=== PATIENT | male | born 1955 | race Caucasian/White ===

== ENCOUNTER 2020-02-29 16:36 | Outpatient (REF) | payer MEDICAID, SELFPAY ==
[2020-02-29 20:39] LABS: HCT 45.7 % (40.0-50.0); HGB 15.2 g/dL (13.5-17.5); MCH 29.6 pg (27.0-33.0); MCHC 33.3 % (32.0-36.0); MCV 88.9 fL (80-95); MPV 10.8 fL (8.0-11.0); Platelet Count 217 10^3/uL (130-400); RBC 5.14 10^6/uL (4.36-5.78); RDW 12.6 % (11.8-14.1); RDW-SD 41.4 fL; WBC 7.29 10^3/uL (4.4-10.8)
[2020-02-29 21:06] LABS: Anion Gap 5.6 mmol/L (3-11); BUN 16 mg/dL (7-18); CO2 29.4 mmol/L (21.0-32.0); CREATININE 1.14 mg/dL (0.70-1.30); Calcium 8.9 mg/dL (8.5-10.1); Calculated LDL 109 mg/dL (<100); Chloride 106 mmol/L (98-107); Cholesterol 168 mg/dL (<200); Glucose 102 mg/dL (74-106); HDL Cholesterol 46 mg/dL (40-60); Potassium 4.6 mmol/L (3.5-5.1); Sodium 141 mmol/L (136-145); Triglyceride 67 mg/dL (<150)
== END 2020-02-29 16:56 ==
LOC: NCHCN 16:36
PROVIDERS: Visit Provider Internal Medicine
DX: R10.9 Unspecified abdominal pain (principal); K42.9 Umbilical hernia without obstruction or gangrene; E78.5 Hyperlipidemia, unspecified
CPT/HCPCS: 80048; 80061; 85027

== ENCOUNTER 2020-03-01 10:31 | Outpatient (CLI) | payer MEDICAID, SELFPAY ==
[2020-03-01] MEDS: Omnipaque 350 MG/ML 50 ML BTL IJ (12:44)
--- NOTE | 2020-03-01 12:57 | DI.CT_ITS ---
EXAM: CT ABDOMEN PELVIS W CLINICAL HISTORY: ABD PAIN, R10.9 TECHNIQUE: COMPARISON: No exams were available for comparison FINDINGS: CT examination of the abdomen and pelvis was performed with bolus infusion of 100 cc of Omnipaque 350 . Images obtained through the lung bases are unremarkable. The liver and spleen appear normal as does the pancreas. Gallbladder and bile ducts are unremarkable. Adrenals appear normal bilaterally. Kidneys appear normal with no evidence of renal mass, hydronephro sis, or nephrolithiasis There is no evidence of abdominal or pelvic adenopathy. Abdominal aorta is of normal diameter and no major vascular abnormality is seen. Appendix is normal. There is marked wall thickening of a segment of the mid sigmoid colon with associated marked pericolo beatriz fat stranding. Findings are highly suggestive of acute diverticulitis.. Some small gas collecti ons are noted which may be intra or extra luminal, possibility of contained micro perforation not exc luded. No gross abscess peritoneal cavity. No significant abdominal wall hernia seen. Impression: Findings consistent with diverticulitis of the mid sigmoid colon. Possible localized micro perforati on, no generalized free air or abscess formation. RADIATION DOSE DELIVERED: 1,509.99mGy.cm Total DLP DATA REPOSITORY: All CT scans at this facility are submitted to the National Radiology Data Registry (NRDR) Dose Index Registry (DIR) with the [employer] (ACR). RADIATION OPTIMIZATION: All CT scans at this facility use at least one of these dose optimization te chniques: automated exposure control; mA and/or kV adjustment per patient size (includes targeted exa ms where dose is matched to clinical indication); or iterative reconstruction.
== END 2020-03-01 10:51 ==
PROVIDERS: PCP Internal Medicine; Visit Provider Internal Medicine
DX: R10.9 Unspecified abdominal pain (principal); R93.5 Abnormal findings on diagnostic imaging of other abdominal regions, including retroperitoneum
CPT/HCPCS: 74177; Q9967

== ENCOUNTER 2020-03-01 17:23 | Observation (INO) | payer MEDICAID, SELFPAY ==
[2020-03-01 17:27] VITALS: BP 155/75; PULSE 77; RESP 16; TEMP 37.1; O2SAT 96
--- NOTE | 2020-03-01 17:34 | ED.GENADUL_ITS ---
Discharge Plan Disposition Patient Disposition: [facility] INPATIENT Condition: Stable Discharge Details Chief Complaint: Abd Prob Clinical Impression: Diverticulitis of colon with perforation Primary Care Provider: Faraz Frank ED Provider: Masood Yoon Home Meds and New Rx's Prescriptions: No Action aspirin 81 MG tablet,delayed release (DR/EC) 81 mg PO DAILY RF: 0 simvastatin [Zocor] 20 MG tablet 20 mg PO DAILY RF: 0 Medical Decision Making 64 yo male with hx of hld comes in after he had abodminal pain in lower and mid abdomen this weekend that has improved in intensity and had a CT done earlier as an outpatient showing the following: FINDINGS: CT examination of the abdomen and pelvis was performed with bolus infusion of 100 cc of Omnipaque 350. Images obtained through the lung bases are unremarkable. The liver and spleen appear normal as does the pancreas. Gallbladder and bile ducts are unremarkable. Adrenals appear normal bilaterally. Kidneys appear normal with no evidence of renal mass, hydronephrosis, or nephrolithiasis There is no evidence of abdominal or pelvic adenopathy. Abdominal aorta is of normal diameter and no major vascular abnormality is seen. Appendix is normal. There is marked wall thickening of a segment of the mid sigmoid colon with associated marked pericolonic fat stranding. Findings are highly suggestive of acute diverticulitis.. Some small gas collections are noted which may be intra or extra luminal, possibility of contained micro perforation not excluded. No gross abscess peritoneal cavity. No significant abdominal wall hernia seen. Impression: Findings consistent with diverticulitis of the mid sigmoid colon. Possible localized micro perforation, no generalized free air or abscess formation. HE was sent here after these results. He denies fevers, chills, chest pain, sob, no prior inrabdominal surgeries.Does have tenderness without guarding in left lower abdomen and also has small umbilical hernia on exam that I am able to reduce. Will obtain lab work and consult general surgery and order zosyn while this is pending. spoke with Dr. Babb who accepts for admission for IV abx, pt agrees with plan Differential Diagnosis Differential Diagnosis: diverticulitis , perforation, umbilical hernia Lab Data Lab results reviewed: Yes I reviewed the patient's lab results. HPI General Mode of arrival: ambulatory . Date/Time Provider Initiated Documentation: 03/01/20 17:24 . Limitations to Documentation: no limitations . Information obtained by: patient . History of Present Illness 64 year old M presents to the emergency department with the chief complaint of abdominal pain, described as moderate, and it has been other (improving). No relieving factors improve symptom(s), No exacerbating factors reported . Patient did receive the following treatments prior to arrival, none Related Data Home Medications Medication Instructions Recorded Confirmed aspirin 81 mg PO DAILY tab-cap 06/09/14 03/01/20 simvastatin [Zocor] 20 mg PO DAILY tab-cap 06/09/14 03/01/20 Allergies Allergy/AdvReac Type Severity Reaction Status Date / Time No Known Allergies Allergy Unverified 03/01/20 17:30 General Stated Complaint: Abd Prob AGAPITO: 3 Review of Systems All systems reviewed & are unremarkable except as noted in HPI and below Constitutional Constitutional: Denies chills, Denies fever(s) and Denies weakness Cardiovascular Cardiovascular: Denies chest pain and Denies dyspnea Respiratory Respiratory: Denies cough and Denies dyspnea Gastrointestinal Gastrointestinal: Denies nausea and Denies vomiting Musculoskeletal Musculoskeletal: Denies joint swelling Neurologic Neurologic: Denies weakness Psychiatric Psychiatric: Denies depression [facility] Social History Smoking/Tobacco Use Status: Never Alcohol Intake: never Drug use: Never Substance use type: does not use Exam Const General: no acute distress Orientation: alert HENMT Head: normal to inspection Ears: external ears normal General nose exam: external nose normal Mouth: moist mucous membranes Eyes General: appearance normal, both eyes and all related structures Neck Neck: normal visual inspection Resp Effort & Inspection: normal respiratory effort and able to speak in complete sentences Cardio Rate: regular rate GI Palpation: soft Skin General skin exam: no rashes or lesions noted Neuro General: patient alert and patient oriented x3 Extrem General: normal to inspection Psych Mental Status: mental status grossly normal Course Vital Signs Vital signs: Vital Signs Temperature 37.1 C 03/01/20 17:27 Pulse 77 03/01/20 17:27 Respiratory Rate 16 03/01/20 17:27 Blood Pressure 155/75 H 03/01/20 17:27 Pulse Oximetry 96 03/01/20 17:27 Temperature 37.1 C 03/01/20 17:27 Temperature Source Skin 03/01/20 17:27 Pulse 77 03/01/20 17:27 Respiratory Rate 16 03/01/20 17:27 Respiratory Effort Non-Labored 03/01/20 17:27 Blood Pressure 155/75 H 03/01/20 17:27 Blood Pressure Position Sitting 03/01/20 17:27 Pulse Oximetry 96 03/01/20 17:27 Oxygen Delivery Method Room Air 03/01/20 17:27 Oxygen Flow Rate 0 03/01/20 17:27 Pain Level 1 03/01/20 17:27
[2020-03-01 17:52] LABS: Abs Immature Grans 0.02 10^3/uL (0.0-0.06); Absolute Basophil Count 0.03 10^3/uL (0.0-0.2); Absolute Eosinophil Count 0.19 10^3/uL (0.0-0.7); Absolute Lymphocyte Count 1.66 10^3/uL (1.2-3.4); Absolute Monocyte Count 0.55 10^3/uL (0.1-0.8); Absolute Neutrophil Count 4.76 10^3/uL (1.2-6.7); Basophils % 0.4; Eosinophils % 2.6; HCT 43.7 % (40.0-50.0); HGB 14.6 g/dL (13.5-17.5); Immature Grans % 0.3; Lactate 1.2 mmol/L (0.6-1.4); MCH 29.5 pg (27.0-33.0); MCHC 33.4 % (32.0-36.0); MCV 88.3 fL (80-95); MPV 10.2 fL (8.0-11.0); Monocytes % 7.6; Neutrophils % 66.1; Nucleated RBC 0 %; Platelet Count 245 10^3/uL (130-400); RBC 4.95 10^6/uL (4.36-5.78); RDW 12.5 % (11.8-14.1); RDW-SD 40.2 fL; WBC 7.21 10^3/uL (4.4-10.8)
[2020-03-01] MEDS: PIPERACILLIN/TAZO 4.5 GM in Normal Saline 100 ML IVPB (17:58)
[2020-03-01 18:08] LABS: PTT Activated 25.4 sec (21.0-31.4); Prothrombin Time 10.3 sec (9.3-11.0)
[2020-03-01 18:24] LABS: ALT 41 U/L (16-63); AST 22 U/L (15-37); Albumin 3.8 g/dL (3.4-5.0); Alkaline Phosphatase 104 U/L (46-116); Anion Gap 7.9 mmol/L (3-11); BUN 16 mg/dL (7-18); Bilirubin, Direct 0.34 mg/dL (0.00-0.20); Bilirubin, Total 2.1 mg/dL (0.2-1.0); CO2 30.1 mmol/L (21.0-32.0); CREATININE 1.28 mg/dL (0.70-1.30); Calcium 8.3 mg/dL (8.5-10.1); Chloride 103 mmol/L (98-107); Estimated GFR 56.58 (mL/min/1.73m2); Glucose 118 mg/dL (74-106); Magnesium 2.4 mg/dL (1.8-2.4); Potassium 3.6 mmol/L (3.5-5.1); Sodium 141 mmol/L (136-145); Total Protein 7.8 g/dL (6.4-8.2)
[2020-03-01 18:26] LABS: Lipase 147 U/L (73-393)
[2020-03-01 19:04] VITALS: BP 136/78; PULSE 73; RESP 17; TEMP 36.4; O2SAT 98
[2020-03-01] MEDS: Normal Saline 1,000 ML 150 ML IV (19:35)
[2020-03-01 21:50] LABS: Bilirubin Negative (Negative); Blood Negative (Negative); Clarity Clear (Clear); Glucose Negative (Negative); Ketones Trace mg/dL (Negative); Leukocyte Esterase Negative (Negative); Nitrite Negative (Negative); Urobilinogen 0.2 EU/dL (Up TO 0.2); pH 5.5 (5-8)
[2020-03-01 23:00] VITALS: BP 128/79; PULSE 58; RESP 17; TEMP 36.7; O2SAT 97
[2020-03-02] MEDS: Normal Saline 1,000 ML 150 ML IV ×2 (02:16→12:42)
[2020-03-02] MEDS: PIPERACILLIN/TAZO 4.5 GM in Normal Saline 100 ML IVPB ×3 (02:30→18:32)
[2020-03-02 03:44] VITALS: BP 115/70; PULSE 64; RESP 17; TEMP 36.5; O2SAT 97
--- NOTE | 2020-03-02 06:19 | W.PM.HP.N ---
Date of service: 03/02/20 Time of Service: 06:19 Assessment and Plan Assessment and plan (1) Diverticulitis of colon with perforation: Status: Acute Assessment and plan: A\\ 64 year old male with diverticulitis, normal WBC count and ? microperforation P\\ Continue IV antibiotics until tomorrow If able to tolerate diet then will D/C home tomorrow on PO antibiotics Qualifiers: Diverticulitis bleeding: without bleeding Qualified Code(s): K57.20 - Diverticulitis of large intestine with perforation and abscess without bleeding (2) Umbilical hernia: Status: Acute Assessment and plan: A\\ Umbilical hernia with fat. Painful P\\ Repair with mesh once he has recovered from the diverticulitis Qualifiers: Obstruction and gangrene presence: with obstruction but without gangrene Qualified Code(s): K42.0 - Umbilical hernia with obstruction, without gangrene History of Present Illness Consults Consult date: 03/01/20 Requesting physician: Jeremy Robert Narrative: Mr. Shipley is a pleasant 64-year-old gentleman who was seen by his primary care physician for abdominal and umbilical pain. CT scan abdomen pelvis was ordered for yesterday. CT scan showed diverticulitis in the mid sigmoid colon with a questionable microperforation. His primary care physician called the patient and asked him to go to the emergency department. He complains mostly of pain around his umbilical hernia. He is having bowel movements but states that it seems to be a little bit harder to pass them. He is not had any melena or hematochezia. He has had no fevers or chills at home. Labs were unremarkable. Review of Systems Constitutional Constitutional: Denies fever(s), Denies headache(s) and Denies weight loss Eyes Eyes: Denies change in vision ENT Ears, Nose, Mouth, and Throat: Denies change in voice, Denies headache(s), Denies hoarseness and Denies odynophagia Cardiovascular Cardiovascular: Denies chest pain, Denies chest pain at rest, Denies irregular heart rhythm, Denies palpitations, Denies dyspnea and Denies dyspnea on exertion Respiratory Respiratory: Denies cough, Denies dyspnea and Denies dyspnea on exertion Gastrointestinal Gastrointestinal: Reports as per HPI and Denies odynophagia Genitourinary Genitourinary: Reports system reviewed and no additional complaints, except as documented Musculoskeletal Musculoskeletal: Reports system reviewed and no additional complaints, except as documented Integumentary/Breasts Skin/Breast: Reports system reviewed and no additional complaints, except as documented Neurologic Neurologic: Reports system reviewed and no additional complaints, except as documented and Denies headache(s) Psychiatric Psychiatric: Reports system reviewed and no additional complaints, except as documented Endocrine Endocrine: Reports system reviewed and no additional complaints, except as documented and Denies palpitations [facility] Medical History (Updated 03/02/20 @ 07:18 by Renuka Riley MD) Hyperlipidemia (Acute) Social History Smoking/Tobacco Use Status: Never Alcohol Intake: never Drug use: Never Substance use type: does not use Meds Home Medications and Allergies Home Medications Medication Instructions Recorded Confirmed Type aspirin 81 mg PO DAILY tab-cap 06/09/14 03/01/20 History simvastatin [Zocor] 20 mg PO DAILY tab-cap 06/09/14 03/01/20 History Allergies Allergy/AdvReac Type Severity Reaction Status Date / Time No Known Allergies Allergy Unverified 03/01/20 17:30 Exam Const General: cooperative, comfortable and no acute distress Orientation: alert and oriented x3 HENMT Head: normocephalic and atraumatic Eyes Pupils: PERRL Resp Effort & Inspection: normal respiratory effort Auscultation: clear to auscultation bilaterally Cardio Rate: regular rate Rhythm: regular rhythm Heart Sounds: no gallops, no murmurs and no rubs GI Palpation: soft, no hepatosplenomegaly and tender (at the umbilical hernia and LLQ) Auscultation: normal bowel sounds Results Labs Result diagrams: 03/01/20 17:45 03/01/20 17:45 Labs: Laboratory Results - last 24 hr 03/01/20 03/01/20 03/01/20 17:45 17:45 17:45 WBC 7.21 RBC 4.95 Hgb 14.6 Hct 43.7 MCV 88.3 MCH 29.5 MCHC 33.4 RDW 12.5 Plt Count 245 MPV 10.2 Immature Gran % 0.3 Neutrophils % 66.1 Lymphocytes % 23.0 Monocytes % 7.6 Eosinophils % 2.6 Basophils % 0.4 Absolute Neutrophils 4.76 Absolute Lymphocytes 1.66 Absolute Monocytes 0.55 Absolute Eosinophils 0.19 Absolute Basophils 0.03 PT INR APTT Sodium 141 Potassium 3.6 D Chloride 103 Carbon Dioxide 30.1 Anion Gap 7.9 BUN 16 Creatinine 1.28 Estimated GFR/1.73 m2 56.58 Glucose 118 H Lactate 1.2 Calcium 8.3 L Magnesium 2.4 Total Bilirubin 2.1 H Conjugated Bilirubin 0.34 H AST 22 ALT 41 Alkaline Phosphatase 104 Total Protein 7.8 Albumin 3.8 Lipase Urine Color Urine Clarity Urine pH Ur Specific [place] Urine Protein Urine Ketones Urine Blood Urine Nitrite Urine Bilirubin Urine Urobilinogen Ur Leukocyte Esterase Urine Glucose 03/01/20 03/01/20 03/01/20 17:45 17:45 21:05 WBC RBC Hgb Hct MCV MCH MCHC RDW Plt Count MPV Immature Gran % Neutrophils % Lymphocytes % Monocytes % Eosinophils % Basophils % Absolute Neutrophils Absolute Lymphocytes Absolute Monocytes Absolute Eosinophils Absolute Basophils PT 10.3 INR 1.0 APTT 25.4 Sodium Potassium Chloride Carbon Dioxide Anion Gap BUN Creatinine Estimated GFR/1.73 m2 Glucose Lactate Calcium Magnesium Total Bilirubin Conjugated Bilirubin AST ALT Alkaline Phosphatase Total Protein Albumin Lipase 147 Urine Color Yellow Urine Clarity Clear Urine pH 5.5 Ur Specific [place] 1.020 Urine Protein Negative Urine Ketones Trace H Urine Blood Negative Urine Nitrite Negative Urine Bilirubin Negative Urine Urobilinogen 0.2 Ur Leukocyte Esterase Negative Urine Glucose Negative Last Vital Signs Temp 97.7 F 03/02/20 03:44 Pulse 64 03/02/20 03:44 Resp 17 03/02/20 03:44 BP 115/70 03/02/20 03:44 Pulse Ox 97 03/02/20 03:44 COVID-19 Screening Have you,or household,traveled outside [place] in last 14 days?: No Had IN PERSON contact w/suspected or confirmed C-19 person: No
[2020-03-02 07:42] VITALS: BP 101/65; PULSE 61; RESP 18; TEMP 36; O2SAT 96
--- NOTE | 2020-03-02 10:07 | PHA.REVIEW ---
Pharmacy Admission Review - Admission Clinical Review (Last Updated 03/02/20 @ 07:16 by Renuka Riley MD) Umbilical hernia (Acute) Diverticulitis of colon with perforation (Acute) No Known Allergies Allergy (Unverified 03/01/20 17:30) Height 6 ft 3 in Weight 111.1 kg - Renal Dosing Renal Dosing: BUN 16 mg/dL (7-18) 03/01/20 17:45 Creatinine 1.28 mg/dL (0.70-1.30) 03/01/20 17:45 Medications needing adjustments: Reviewed (CrCl ~78.4 mL/min using adjusted BW, current meds okay) - Anticoagulation Anticoagulation: Hgb 14.6 g/dL (13.5-17.5) 03/01/20 17:45 Hct 43.7 % (40.0-50.0) 03/01/20 17:45 Plt Count 245 10^3/uL (130-400) 03/01/20 17:45 INR 1.0 (0.9-1.1) 03/01/20 17:45 Creatinine 1.28 mg/dL (0.70-1.30) 03/01/20 17:45 DVT Prohphylaxis: Reviewed (will check with provider on need) Therapeutic Anticoagulation: N/A - Opiate Usage Evaluate Pain Scale/Pains Meds: Reviewed (Fentanyl) Scheduled Bowel Reg ordered if on Opiates?: No - Relevant Labs Sodium 141 mmol/L (136-145) 03/01/20 17:45 Potassium 3.6 mmol/L (3.5-5.1) D 03/01/20 17:45 Chloride 103 mmol/L (98-107) 03/01/20 17:45 Magnesium 2.4 mg/dL (1.8-2.4) 03/01/20 17:45 Electrolytes, C-Reactive P, ESR: Reviewed (Ca 8.3 (normal albumin)) - DM Control DM Control: Glucose 118 mg/dL (74-106) H 03/01/20 17:45 Insulin Dosing: N/A (No DM in pt's medical history, glucose slightly elevated) - Heart Failure/NV EF%, ADWOA's, B-Blockers, Diuretics: N/A - BP Control BP Control: Blood Pressure 101/65 Blood Pressure 115/70 Blood Pressure 128/79 If elevated: N/A - Qtc Review If Elevated: N/A (No recent EKG labs) - IV to PO Switch IV Medications: Reviewed (IV fentanyl, ondansetron, and Zosyn) - Home Meds Home Med List reviewed: Reviewed Relevent Home Meds Not ordered & why?: Simvastatin (last picked up on 06/19/19 for 90 day supply per external med history) - Current meds Current Medication Order Review: Reviewed - Comments Comments/Follow Ups: Monitor Ca and glucose. Watch for any med changes (IV to PO abx, possible anticoaglant). Per MD if patient can tolerate diet, he will be discharged tomorrow with PO abx. Antibiotic Activity - Pharmacy Antibiotic Review Pharmacy Antibiotic Activity: Reviewed, no change (Zosyn 4.5g IV Q8H)
--- NOTE | 2020-03-02 11:25 | INITIAL_ITS ---
- If Service Date Differs Date of service: 03/02/20 Time of Service: 11:25 Care Management Initial Assess REASON FOR HOSPITALIZATION:: Diverticulitis with perforation PAST MEDICAL HISTORY/PAST SURGICAL HISTORY:: Medical History. Hyperlipidemia (Acute) PREVIOUS FUNCTIONAL STATUS/SOCIAL/FAMILY SUPPORTS:: Duane lives in [facility] with his , Mikaela. He has two adult children and one 14 year old daughter, who is still at home. His homeschools his daughter, which he is happy about, as he doesn't want to expose his daughter to Covid 19. He does [employer] work in [place], [place]. He is independent at baseline. CURRENT FUNCTIONAL STATUS:: Duane was sitting up in his chair when CM met with him. He was pleasant and engaged in conversation. He stated that he spoke with the surgeon today who stated that he would remain at [facility] on IV abx until tomorrow for monitoring. If he responds well to the abx, he may be ready for discharge tomorrow. CM will continue to follow. ADVANCE DIRECTIVES:: None on file. Has patient been provided with info about the portal/API?: No Did the patient sign up for the portal?: No CODE STATUS:: Full Code INSURANCE COVERAGE / FINANCIAL ISSUES:: PAT CURRENT HOME/COMMUNITY SERVICES/EQUIPMENT:: No current services or equipment. PRIMARY CARE PHYSICIAN:: Faraz Frank POTENTIAL DISCHARGE NEEDS:: Evaluations for further needs, follow up appointments PATIENT/FAMILY EDUCATION NEEDS:: Review discharge instructions regarding activity levels and medications, discussion of self care needs including ask me three ANTICIPATED BARRIERS TO DISCHARGE:: None identified at this time. TRANSPORTATION:: Via private vehicle by his . PLAN:: Anticipate Duane will return home when medically cleared. His will drive him home when ready. He will follow up with his PCP and discharge plan of care. CM will continue to follow.
[2020-03-02 12:04] VITALS: BP 130/72; PULSE 56; RESP 18; TEMP 35.5; O2SAT 97
[2020-03-02 13:19] LABS: COVID-19 RT-PCR UVMMC Result Negative (Negative)
[2020-03-02 16:12] VITALS: BP 124/75; PULSE 54; RESP 16; TEMP 36.6; O2SAT 96
[2020-03-02] MEDS: Enoxaparin 40 MG/0.4 ML SYR SC (18:31)
[2020-03-02 19:19] VITALS: BP 108/52; PULSE 56; RESP 18; TEMP 36.2; O2SAT 98
[2020-03-02 23:14] VITALS: BP 122/75; PULSE 58; RESP 18; TEMP 36.3; O2SAT 97
[2020-03-03] MEDS: PIPERACILLIN/TAZO 4.5 GM in Normal Saline 100 ML IVPB ×2 (02:13→09:58)
[2020-03-03] MEDS: Normal Saline Flush 10 ML SYR IVP (02:14)
[2020-03-03 03:12] VITALS: BP 127/73; PULSE 56; RESP 18; TEMP 37.2; O2SAT 95
[2020-03-03 06:39] LABS: Abs Immature Grans 0.01 10^3/uL (0.0-0.06); Absolute Basophil Count 0.03 10^3/uL (0.0-0.2); Absolute Eosinophil Count 0.23 10^3/uL (0.0-0.7); Absolute Lymphocyte Count 1.44 10^3/uL (1.2-3.4); Absolute Monocyte Count 0.31 10^3/uL (0.1-0.8); Absolute Neutrophil Count 1.92 10^3/uL (1.2-6.7); Basophils % 0.8; Eosinophils % 5.8; HCT 39.7 % (40.0-50.0); HGB 13.4 g/dL (13.5-17.5); Immature Grans % 0.3; Lymphocytes % 36.5; MCH 29.5 pg (27.0-33.0); MCHC 33.8 % (32.0-36.0); MCV 87.3 fL (80-95); MPV 9.9 fL (8.0-11.0); Monocytes % 7.9; Neutrophils % 48.7; Nucleated RBC 0 %; Platelet Count 225 10^3/uL (130-400); RBC 4.55 10^6/uL (4.36-5.78); RDW 12.2 % (11.8-14.1); RDW-SD 39.4 fL; WBC 3.94 10^3/uL (4.4-10.8)
[2020-03-03 07:14] LABS: C-Reactive Protein 2.81 mg/dL (0.0-0.3)
[2020-03-03 07:22] VITALS: BP 111/71; PULSE 54; RESP 18; TEMP 36.7; O2SAT 95
--- NOTE | 2020-03-03 09:06 | PGE_ITS ---
Date of Service Date of service: 03/03/20 Time of Service: 09:06 Assessment and Plan Assessment and plan (1) Diverticulitis of colon with perforation: Status: Acute Assessment and plan: He is feeling well WBC normal, no fever. Will complete antibiotic dose scheduled for 10:00 and then discharge. Qualifiers: Diverticulitis bleeding: without bleeding Qualified Code(s): K57.20 - Diverticulitis of large intestine with perforation and abscess without bleeding Subjective Subjective Interval history since last seen: Feeling better today Minimal pain, not using any medication Tolerating PO without worsening pain or nausea Had a regular BM this admission. Exam Narrative Exam Narrative: Appears well, no distress Abdomen soft, non distended. Minimal tenderness LLQ. Objective Objective Clinical Data: Abnormal lab results 03/03/20 03/03/20 Range/Units 06:07 06:07 WBC 3.94 L (4.4-10.8) 10^3/uL Hgb 13.4 L (13.5-17.5) g/dL Hct 39.7 L (40.0-50.0) % C-Reactive Protein 2.81 H (0.0-0.3) mg/dL Vital Signs Temperature 98.1 F 03/03/20 07:22 Temperature Source Tympanic 03/03/20 07:22 Pulse 54 L 03/03/20 07:22 Pulse Rhythm Regular 03/03/20 06:16 Respiratory Rate 18 03/03/20 07:22 Respiratory Effort Non-Labored 03/03/20 06:16 Respiratory Depth Normal 03/03/20 06:16 Respiratory Pattern Normal 03/03/20 06:16 Blood Pressure 111/71 03/03/20 07:22 Blood Pressure Position Sitting 03/01/20 17:27 Pulse Oximetry 95 03/03/20 07:22 Oxygen Delivery Method Room Air 03/03/20 07:22 Oxygen Flow Rate 0 03/03/20 07:22 Pain Level 0 03/03/20 07:22 Intake & Output 03/02/20 03/02/20 03/03/20 11:59 23:59 11:59 Intake Total 1945 / 5937.5 3992.5 / 5937.5 600 / 600 Balance 1945 / 5937.5 3992.5 / 5937.5 600 / 600 Weight 244 lb 14.937 oz 246 lb 7.629 oz Intake: IV 1135 / 3257.5 2122.5 / 3257.5 100 / 100 Oral 810 / 2680 1870 / 2680 500 / 500 Other: Urine Color Yellow Yellow Urine Appearance Clear Clear Clear Comment independent independent Stool Size Moderate Stool Characteristics Soft Liquid Voiding Methods Toilet Toilet Laboratory Results WBC 3.94 10^3/uL (4.4-10.8) L 03/03/20 06:07 RBC 4.55 10^6/uL (4.36-5.78) 03/03/20 06:07 Hgb 13.4 g/dL (13.5-17.5) L 03/03/20 06:07 Hct 39.7 % (40.0-50.0) L 03/03/20 06:07 MCV 87.3 fL (80-95) 03/03/20 06:07 MCH 29.5 pg (27.0-33.0) 03/03/20 06:07 MCHC 33.8 % (32.0-36.0) 03/03/20 06:07 RDW 12.2 % (11.8-14.1) 03/03/20 06:07 Plt Count 225 10^3/uL (130-400) 03/03/20 06:07 MPV 9.9 fL (8.0-11.0) 03/03/20 06:07 Immature Gran % 0.3 03/03/20 06:07 Neutrophils % 48.7 03/03/20 06:07 Lymphocytes % 36.5 03/03/20 06:07 Monocytes % 7.9 03/03/20 06:07 Eosinophils % 5.8 03/03/20 06:07 Basophils % 0.8 03/03/20 06:07 Absolute Neutrophils 1.92 10^3/uL (1.2-6.7) 03/03/20 06:07 Absolute Lymphocytes 1.44 10^3/uL (1.2-3.4) 03/03/20 06:07 Absolute Monocytes 0.31 10^3/uL (0.1-0.8) 03/03/20 06:07 Absolute Eosinophils 0.23 10^3/uL (0.0-0.7) 03/03/20 06:07 Absolute Basophils 0.03 10^3/uL (0.0-0.2) 03/03/20 06:07 PT 10.3 sec (9.3-11.0) 03/01/20 17:45 INR 1.0 (0.9-1.1) 03/01/20 17:45 APTT 25.4 sec (21.0-31.4) 03/01/20 17:45 Sodium 141 mmol/L (136-145) 03/01/20 17:45 Potassium 3.6 mmol/L (3.5-5.1) D 03/01/20 17:45 Chloride 103 mmol/L (98-107) 03/01/20 17:45 Carbon Dioxide 30.1 mmol/L (21.0-32.0) 03/01/20 17:45 Anion Gap 7.9 mmol/L (3-11) 03/01/20 17:45 BUN 16 mg/dL (7-18) 03/01/20 17:45 Creatinine 1.28 mg/dL (0.70-1.30) 03/01/20 17:45 Estimated GFR/1.73 m2 56.58 (mL/min/1.73m2) 03/01/20 17:45 Glucose 118 mg/dL (74-106) H 03/01/20 17:45 Lactate 1.2 mmol/L (0.6-1.4) 03/01/20 17:45 Calcium 8.3 mg/dL (8.5-10.1) L 03/01/20 17:45 Magnesium 2.4 mg/dL (1.8-2.4) 03/01/20 17:45 Total Bilirubin 2.1 mg/dL (0.2-1.0) H 03/01/20 17:45 Conjugated Bilirubin 0.34 mg/dL (0.00-0.20) H 03/01/20 17:45 AST 22 U/L (15-37) 03/01/20 17:45 ALT 41 U/L (16-63) 03/01/20 17:45 Alkaline Phosphatase 104 U/L (46-116) 03/01/20 17:45 C-Reactive Protein 2.81 mg/dL (0.0-0.3) H 03/03/20 06:07 Total Protein 7.8 g/dL (6.4-8.2) 03/01/20 17:45 Albumin 3.8 g/dL (3.4-5.0) 03/01/20 17:45 Lipase 147 U/L (73-393) 03/01/20 17:45 Urine Color Yellow (Yellow) 03/01/20 21:05 Urine Clarity Clear (Clear) 03/01/20 21:05 Urine pH 5.5 (5-8) 03/01/20 21:05 Ur Specific [place] 1.020 (1.005-1.025) 03/01/20 21:05 Urine Protein Negative mg/dL (Negative) 03/01/20 21:05 Urine Ketones Trace mg/dL (Negative) H 03/01/20 21:05 Urine Blood Negative (Negative) 03/01/20 21:05 Urine Nitrite Negative (Negative) 03/01/20 21:05 Urine Bilirubin Negative (Negative) 03/01/20 21:05 Urine Urobilinogen 0.2 EU/dL (Up TO 0.2) 03/01/20 21:05 Ur Leukocyte Esterase Negative (Negative) 03/01/20 21:05 Urine Glucose Negative mg/dL (Negative) 03/01/20 21:05 COVID-19 PCR Negative (Negative) 03/01/20 18:45 Nasopharyn COVID-19 PCR Not Applicable 03/01/20 18:45 Ref Test Perform Site [facility] lab 03/01/20 18:45
[2020-03-03 11:14] VITALS: BP 125/80; PULSE 57; RESP 19; TEMP 37.2; O2SAT 96
--- NOTE | 2020-03-03 12:39 | W.PM.DS.N ---
Date of service: 03/03/20 Time of Service: 12:39 DS: Diagnosis Discharge Diagnosis (1) Diverticulitis of colon with perforation: Status: Acute (2) Umbilical hernia: Status: Acute Discharge Plan Disposition Patient Disposition: HOME Condition: Improving Discharge Details Chief Complaint: Abd Prob Clinical Impression: Diverticulitis of colon with perforation Reason For Visit: DIVERTICULITIS, ? MICROPERFORATION Admit Date/Time: 03/01/20 18:10 Admit Provider: Renuka Riley Attending Provider: Renuka Riley Primary Care Provider: Faraz Frank ED Provider: Masood Yoon Hospital Course Hospital Course: The patient was admitted for IV antibiotics for sigmoid diverticulitis with a microperforation. He was able to advance his diet without difficulty with no increased nausea or pain. He had a regular bowel movement. He remained afebrile and had a normal white blood cell count the day of discharge. His abdominal examination was benign with some mild left lower quadrant tenderness but no distention or peritonitis. He will follow-up with Dr. Riley next week to monitor his progress as well as to discuss potential umbilical hernia repair down the road. Home Meds and New Rx's Prescriptions: New amoxicillin-pot clavulanate [Augmentin] 875-125 mg tablet 1 tab PO BID Qty: 18 RF: 0 Continued aspirin 81 MG tablet,delayed release (DR/EC) 81 mg PO DAILY RF: 0 simvastatin [Zocor] 20 MG tablet 20 mg PO DAILY RF: 0 Discharge Instructions Additional Instructions: Take in a soft/low fiber diet for two weeks. Supplement with yogurt/Kefir while on the antibiotics. It is okay to return to work on 03/07/20. Do not lift more than 40 pounds and stop lifting if any weight causes pain. Contact the surgery office or electroneurodiagnostic technician surgeon if you have worsening pain, fever, vomiting or cannot have a bowel movement. You can use Tylenol and/or ibuprofen for pain. Referrals: Renuka Riley MD [ [facility] ST[facility]FF PHYSICIAN] - (Return next Saturday for an office visit) Activity:: Do not lift more than 40 pounds Equipment/Supplies:: No Equipment Needed Diet:: Low fiber Discharge Orders Discharge Orders: Discharge Order (Routine); Ordered 03/03/20 Ordered By: Gabrielle Briceño DS: Summary Status at Discharge Functional status at discharge: independent ambulation Overall status at discharge: patient is progressing back to baseline Mental Status: mental status grossly normal Speech and Movement: speech and movement normal Mood: congruent mood Affect: normal affect Exam Psych Mental Status: mental status grossly normal Speech and Movement: speech and movement normal Mood: congruent mood Affect: normal affect DS: Data Vitals/I&O Vitals and I&O: Vital Signs Temperature 99.0 F 03/03/20 11:14 Temperature Source Tympanic 03/03/20 11:14 Pulse 57 L 03/03/20 11:14 Pulse Rhythm Regular 03/03/20 09:05 Respiratory Rate 19 03/03/20 11:14 Respiratory Effort Non-Labored 03/03/20 09:05 Respiratory Depth Normal 03/03/20 09:05 Respiratory Pattern Normal 03/03/20 09:05 Blood Pressure 125/80 03/03/20 11:14 Blood Pressure Position Sitting 03/01/20 17:27 Pulse Oximetry 96 03/03/20 11:14 Oxygen Delivery Method Room Air 03/03/20 11:14 Oxygen Flow Rate 0 03/03/20 11:14 Pain Level 0 03/03/20 11:14 Intake & Output 03/02/20 03/03/20 03/03/20 23:59 11:59 23:59 Intake Total 3992.5 / 5937.5 960 / 960 Balance 3992.5 / 5937.5 960 / 960 Weight 246 lb 7.629 oz Intake: IV 2122.5 / 3257.5 100 / 100 Oral 1870 / 2680 860 / 860 Other: Urine Color Yellow Urine Appearance Clear Clear Comment independent Stool Size Moderate Stool Characteristics Soft Liquid Voiding Methods Toilet Data Completed and Pending Labs on day of discharge: Labs from last 24 hours 03/03/20 03/03/20 03/01/20 06:07 06:07 18:45 WBC 3.94 L RBC 4.55 Hgb 13.4 L Hct 39.7 L MCV 87.3 MCH 29.5 MCHC 33.8 RDW 12.2 Plt Count 225 MPV 9.9 Immature Gran % 0.3 Neutrophils % 48.7 Lymphocytes % 36.5 Monocytes % 7.9 Eosinophils % 5.8 Basophils % 0.8 Absolute Neutrophils 1.92 Absolute Lymphocytes 1.44 Absolute Monocytes 0.31 Absolute Eosinophils 0.23 Absolute Basophils 0.03 C-Reactive Protein 2.81 H COVID-19 PCR Negative Nasopharyn COVID-19 PCR Not Applicable Ref Test Perform Site [facility] lab [facility] Medical History Hyperlipidemia (Acute) Social History Smoking/Tobacco Use Status: Never Alcohol Intake: never Drug use: Never Substance use type: does not use
--- NOTE | 2020-03-03 12:56 | W.NUTCONSULT ---
Date of service: 03/03/20 Time of Service: 12:56 Nutritional Consult ASSESSMENT: 64 year old male admitted with diverticulitis with possible performation. PMH: unremarkable other than for obesity (BMI30). Currently following low fiber diet with no complaints. Home meds include zocor. NUTRITIONAL DIAGNOSIS: well nourished INTERVENTION: Educated Duane on importance of following fiber restricted while treated with diverticulitis. Provided written material. Reviewed when to introduce fiber rich foods again, to do so slowly and with adequate fluid intake. Written material provided for diet with diverticulitis and for diet to avoid diverticulosis. Contact information provided for follow up in outpatient setting as needed. MONITORING AND EVALUATION: po intake, tolerance, labs, weight Time Spent in Nutritional Counseling and Treatment: 20 min spent face to face
--- NOTE | 2020-03-03 14:34 | CHAPLAIN ---
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 His judaism has been meeting by Zoom because of COVID. Duane said he has received good care here. His is visiting later so she can speak with the hospitalist as well, as Duane said there are three doctors working on his case and some changes were made to the treatment plan that he doesn't understand and he wants to ask some more questions. He's also been in touch with his PCP, Dr. Frank. Duane said his landcare officer, Jyoti has also been very helpful. He seems to be comfortable being here, and appreciative of the care.
--- NOTE | 2020-03-03 14:35 | PDOC.CMDIS ---
- If Service Date Differs Date of service: 03/03/20 Time of Service: 14:35 LACE Index Scoring Tool - Questions: Length of Stay (in days): 3 Acuity (Admit via E.D.?): Yes E.D. Visits: 1 - Answers: Total Score: 7 Risk of Readmission: Low Risk Care Management Discharge Reason for Hospitalization: Diverticulitis with perforation Discharge Plan: Wilmer will return home with no additional services at this time. He asked to speak with CM today regarding his discharge plan, as it changed from yesterday to today. He stated that the surgeon that he saw yesterday gave him different instructions than the one discharging him today. MIKE asked Dr. Aguilar to visit with the pt and go over his instructions in order to clarify for him what he should be doing going forward, which she agreed to. Wilmer also asked that CM be present during the interaction, as well as his , Mikaela. Dr. Aguilar went over all of Wilmer's instructions and included him in his care plan. All of his questions were answered, and he stated that he was comfortable with the plan. He is happy to be going home with his . Patient/Family Education Needs: Review discharge instructions regarding activity levels and medications, discussion of self care needs including ask me three. Wilmer's , Mikaela will be present for discharge instructions, at the request of Wilmer. Wilmer is a strong advocate for himself and would like to be involved in his care plan. CM offered support and helped connect Wilmer with his surgeon for clarification of his plan.
== END 2020-03-03 15:41 | disposition home or self-care (01) ==
LOC: ER 18:34 → MS 20:09
PROVIDERS: Surgery; Admitting Provider Surgery; Emergency Provider Emergency Medicine; PCP Internal Medicine; Visit Provider Surgery
DX: K57.20 Diverticulitis of large intestine with perforation and abscess without bleeding (principal); K42.0 Umbilical hernia with obstruction, without gangrene; Z11.59 Encounter for screening for other viral diseases
CPT/HCPCS: 36415; 80053; 83690; 96365; 99223; 99231; 99238; 99285; J1650; U0003; 81003; 82248; 83605; 83735; 85025; 85610; 85730; 86140; 99284; G0378; J2543

== ENCOUNTER 2020-03-23 00:25 | Emergency (ER) | payer MEDICAID, SELFPAY ==
[2020-03-23 00:30] VITALS: BP 154/92; PULSE 68; RESP 20; TEMP 36.8; O2SAT 95
--- NOTE | 2020-03-23 00:41 | ED.GENADUL_ITS ---
Discharge Plan Disposition Patient Disposition: HOME Condition: Stable Discharge Details Chief Complaint: Cellulitis Clinical Impression: Superficial thrombophlebitis of right upper extremity Primary Care Provider: aFraz Frank ED Provider: Masood Yoon Home Meds and New Rx's Prescriptions: New amoxicillin-pot clavulanate [Augmentin] 875-125 mg tablet 1 tab PO BID Qty: 14 RF: 0 Continued aspirin 81 MG tablet,delayed release (DR/EC) 81 mg PO DAILY RF: 0 simvastatin [Zocor] 20 MG tablet 20 mg PO DAILY RF: 0 Discontinued amoxicillin-pot clavulanate [Augmentin] 875-125 mg tablet 1 tab PO BID Qty: 18 RF: 0 Discharge Instructions Instructions: Superficial Thrombophlebitis (ED) Additional Instructions: you likely have a superficial blood clot in the arm but need to have an ultrasoud later today to evaluate for a deep vein thrombosis you should be contacted for an appointment to return to have the ultrasound if you have significant increase in pain or swelling return to the emergency department Medical Decision Making 64 yo male with hx of diverticulitis with microperforation earlier this month treated with iv abx with IV in right ac per patient, factor 5 leiden mutation, who comes in with cc of right arm discomfort and erythema for several days. Denies fevers, severe pain, dyspnea, chest pain/pressure. Has mild erythema to the mid anterior forearm that is not warm to touch and is about 3x4cm and has firm feeling palpable cord that seems consistent with superficial thrombophlebitis.Has normal pulses, normal sensation and no apprciated swelling compared to the other arm. Suspect superficial thrombophlebitis but will have him return for u/s to evaluate for dvt. Discussed risks and benefits of dose of eliquis before u/s and he would like one time dose, no history of bleeding. Will also start augmentin for possible cellulitis, return precautions given Differential Diagnosis Differential Diagnosis: dvt, superficial thrombophlebitis HPI General Mode of arrival: ambulatory . Date/Time Provider Initiated Documentation: 03/23/20 00:26 . Limitations to Documentation: no limitations . Information obtained by: patient . History of Present Illness 64 year old M presents to the emergency department with the chief complaint of right arm discomfort/redness, described as mild, Patient started experiencing this day(s) (2) and it has been constant. No relieving factors improve symptom(s), No exacerbating factors reported . Patient did receive the following treatments prior to arrival, none Related Data Home Medications Medication Instructions Recorded Confirmed aspirin 81 mg PO DAILY tab-cap 06/09/14 03/11/20 simvastatin [Zocor] 20 mg PO DAILY tab-cap 06/09/14 03/11/20 amoxicillin-pot clavulanate 1 tab PO BID #14 tab 03/23/20 [Augmentin] Previous Rx's Medication Instructions Recorded amoxicillin-pot clavulanate 1 tab PO BID #14 tab 03/23/20 [Augmentin] Allergies Allergy/AdvReac Type Severity Reaction Status Date / Time No Known Allergies Allergy Unverified 03/11/20 09:32 General Stated Complaint: Cellulitis AGAPITO: 4 Review of Systems All systems reviewed & are unremarkable except as noted in HPI and below Constitutional Constitutional: Denies chills, Denies fever(s) and Denies weakness Cardiovascular Cardiovascular: Denies chest pain and Denies dyspnea Respiratory Respiratory: Denies cough and Denies dyspnea Gastrointestinal Gastrointestinal: Denies abdominal pain, Denies nausea and Denies vomiting Neurologic Neurologic: Denies weakness [facility] Medical History (Updated 03/23/20 @ 00:46 by Masood Yoon MD) Diverticulitis of colon with perforation (Inactive) Factor 5 Leiden mutation, heterozygous (Acute) Hyperlipidemia (Acute) Umbilical hernia (Inactive) Surgical History (Updated 03/11/20 @ 10:04 by Renuka Riley MD) S/P colonoscopy (Acute) Social History Smoking/Tobacco Use Status: Never Alcohol Intake: never Drug use: Never Substance use type: does not use Do you feel safe at home: Yes Do you feel safe in your relationship?: Yes Exam Const General: no acute distress Orientation: alert HENMT Head: normal to inspection Ears: external ears normal General nose exam: external nose normal Mouth: moist mucous membranes Eyes General: appearance normal, both eyes and all related structures Neck Neck: normal visual inspection Resp Effort & Inspection: normal respiratory effort and able to speak in complete sentences Cardio Rate: regular rate Skin General skin exam: elasticity normal Neuro General: patient alert and patient oriented x3 Extrem General: full ROM and capillary refill normal Psych Mental Status: mental status grossly normal Course Vital Signs Vital signs: Vital Signs Temperature 36.8 C 03/23/20 00:30 Pulse 68 03/23/20 00:30 Respiratory Rate 20 03/23/20 00:30 Blood Pressure 154/92 H 03/23/20 00:30 Pulse Oximetry 95 03/23/20 00:30 Temperature 36.8 C 03/23/20 00:30 Temperature Source Tympanic 03/23/20 00:30 Pulse 68 03/23/20 00:30 Respiratory Rate 20 03/23/20 00:30 Respiratory Effort 03/23/20 00:36 Blood Pressure 154/92 H 03/23/20 00:30 Pulse Oximetry 95 03/23/20 00:30 Oxygen Delivery Method Room Air 03/23/20 00:30 Oxygen Flow Rate 0 03/23/20 00:30 Pain Level 5 03/23/20 00:30
[2020-03-23] MEDS: Apixaban 5 MG TAB 10 MG PO (00:47)
[2020-03-23] MEDS: Amoxicillin 875/Clav. 125 TAB PO (00:47)
== END 2020-03-23 00:52 | disposition home or self-care (01) ==
PROVIDERS: Emergency Provider Emergency Medicine; PCP Internal Medicine
DX: I80.8 Phlebitis and thrombophlebitis of other sites (principal); Y84.8 Other medical procedures as the cause of abnormal reaction of the patient, or of later complication, without mention of misadventure at the time of the procedure; D68.51 Activated protein C resistance; Z86.711 Personal history of pulmonary embolism
CPT/HCPCS: 99283; 99284

== ENCOUNTER 2020-03-23 11:41 | Emergency (ER) | payer MEDICAID, SELFPAY ==
[2020-03-23 11:48] VITALS: BP 129/78; PULSE 73; RESP 16; TEMP 36.5; O2SAT 97
--- NOTE | 2020-03-23 11:55 | ED.GENADUL_ITS ---
Discharge Plan Disposition Patient Disposition: HOME Condition: Stable Discharge Details Chief Complaint: Recheck Clinical Impression: Deep vein thrombosis (DVT) of right upper extremity Primary Care Provider: Faraz Frank ED Provider: Kay Marquez Home Meds and New Rx's Prescriptions: New Eliquis DVT-PE Treat 30D Start 5 mg (74 tabs) tablets,dose pack See Rx Instructions .ROUTE .COMPLEX Qty: 74 RF: 0 No Action aspirin 81 MG tablet,delayed release (DR/EC) 81 mg PO DAILY RF: 0 simvastatin [Zocor] 20 MG tablet 20 mg PO DAILY RF: 0 amoxicillin-pot clavulanate [Augmentin] 875-125 mg tablet 1 tab PO BID Qty: 14 RF: 0 Discharge Instructions Additional Instructions: Start the Eliquis will take 10 mg twice a day for the first 7 days and then 5 mg twice a day follow the package directions. Return immediately to the emergency room for any increased shortness of breath, chest pain or any concerns. Follow up with primary care provider in 3-5 days. Return to ED sooner if any worsening or concerns. Referrals: Faraz Frank MD [Primary Care Provider] - Discharge Data Discharge Date/Time-TO BE ENTERED AT DEPARTURE: 03/23/20 12:50 Medical Decision Making 64-year-old male presents to the ER after having ultrasound this morning to his right upper extremity. Patient was admitted in the hospital for hernia and diverticulitis has an IV in his right upper extremity for 3 days. He began with swelling tenderness and slight erythema which is concerning for superficial thrombophlebitis. He denies any chest pain, shortness of breath or any other symptoms. He does have a history of factor V Leiden mutation and has had a pulmonary embolism in the past about 20 years ago. He was given a single dose of Eliquis last night in the emergency department. 1150: Spoke with Dr. Wan radiologist regarding ultrasound result positive DVT in to the basilic vein right upper extremity. TECHNIQUE: Ultrasound performed using standard protocol. COMPARISON: No exams were available for comparison FINDINGS: Duplex evaluation of the deep venous system of the right upper extremity was performed according to the usual protocol. There is extensive visible thrombus in the basilic vein from mid humeral level extending distally to the level of the wrist. No additional thrombus identified. IMPRESSION: Examination is positive for extensive thrombus basilic vein as described above. Patient prescribed Eliquis and given a coupon and prescription for the starter pack. Instructed to take 10 mg twice a day for for 7 days then 5 mg daily thereafter. Patient verbalized understanding. Discussed red flags and strict return instructions, verbalized understanding. 1456: Patient called department to state that he is not able to fill the Eliquis until late tomorrow. Patient called back and left voicemail. 20 mg ordered here in department to that patient can take home with him. 1530: Call made to Mr. Shipley regarding Eliquis, he states that he was able to get prescription filled in [place] which he was on his way to at this time. Discussed continuing antibiotics for possible superficial thrombophlebitis and to follow-up with PCP in the next few days, verbalized understanding. HPI General Mode of arrival: ambulatory . Date/Time Provider Initiated Documentation: 03/23/20 11:42 . Limitations to Documentation: no limitations . Information obtained by: patient . HPI Narrative: 64-year-old male presents to the ER after having ultrasound this morning to his right upper extremity. Patient was admitted in the hospital for hernia and diverticulitis has an IV in his right upper extremity for 3 days. He began with swelling tenderness and slight erythema which is concerning for superficial thrombophlebitis. He denies any chest pain, shortness of breath or any other symptoms. He does have a history of factor V Leiden mutation and has had a pulmonary embolism in the past about 20 years ago. He was given a single dose of Eliquis last night in the emergency department. Related Data Home Medications Medication Instructions Recorded Confirmed aspirin 81 mg PO DAILY tab-cap 06/09/14 03/23/20 simvastatin [Zocor] 20 mg PO DAILY tab-cap 06/09/14 03/23/20 amoxicillin-pot clavulanate 1 tab PO BID #14 tab 03/23/20 03/23/20 [Augmentin] apixaban [Eliquis DVT-PE Treat 30D See Rx Instructions .ROUTE 03/23/20 Start] .COMPLEX #74 dose pk Previous Rx's Medication Instructions Recorded amoxicillin-pot clavulanate 1 tab PO BID #14 tab 03/23/20 [Augmentin] apixaban [Eliquis DVT-PE Treat 30D See Rx Instructions .ROUTE 03/23/20 Start] .COMPLEX #74 dose pk Allergies Allergy/AdvReac Type Severity Reaction Status Date / Time No Known Allergies Allergy Unverified 03/23/20 11:52 General Stated Complaint: GenMedical AGAPITO: 4 Review of Systems Narrative: Constitutional: Negative for weight loss, alert and oriented, well groomed, normal body habitus, appears comfortable. HEENT: Denies trauma, headaches, blurry vision, nasal discharge, sore throat, trouble swallowing. Chest: Denies chest pain, palpitations, irregular rhythm, hypertension. Respiratory: Denies Shortness of breath, cough, hemoptysis. GI: Denies abdominal pain, nausea, vomiting, diarrhea, constipation. : Denies dysuria, hematuria, flank pain, rectal bleeding. Neuro: Denies dizziness, blurry vision, weakness, syncope, headache or facial numbness. Hematologic: Denies easy bruising, intolerance to heat or cold, hair loss. [facility] Medical History Diverticulitis of colon with perforation (Inactive) Factor 5 Leiden mutation, heterozygous (Acute) Hyperlipidemia (Acute) Umbilical hernia (Inactive) Surgical History S/P colonoscopy (Acute) Social History Smoking/Tobacco Use Status: Never Alcohol Intake: never Drug use: Never Substance use type: does not use Do you feel safe at home: Yes Do you feel safe in your relationship?: Yes Exam Narrative Exam Narrative: Constitutional: Alert and oriented x3. Appears stated age. Normal body habitus. Head: Normocephalic, no trauma. Eyes: Pupils PERRLA, Red reflex noted, EOM's intact. Eyelids symmetrical without lesions, discharge, or swelling. ENT: Bilateral TM's WNL, External ear normal to inspection, no mastoid TTP, swelling, or erythema, Nasal turbinates WNL, no nasal discharge. Normal dentition, Posterior pharynx WNL, no exudate. Chest: RRR, Normal S1, S2, distal pulses intact. Resp: Lungs clear to auscultation bilaterally, no wheezes, rales, or rhonchi. Musculoskeletal: Normal gait, 5/5 strength to all four extremities. Skin: No suspicious rashes or lesions. Capillary refill less than 2 sec. Neurologic: Cranial nerves II-XII intact. Alert and oriented x 3. DTR's intact. Hematologic/Lymphatic: No ecchymosis, no lymphadenopathy. Course Vital Signs Vital signs: Vital Signs Temperature 36.5 C 03/23/20 11:48 Pulse 73 03/23/20 11:48 Respiratory Rate 16 03/23/20 11:48 Blood Pressure 129/78 03/23/20 11:48 Pulse Oximetry 97 03/23/20 11:48 Temperature 36.5 C 03/23/20 11:48 Temperature Source Skin 03/23/20 11:48 Pulse 73 03/23/20 11:48 Respiratory Rate 16 03/23/20 11:48 Respiratory Effort 03/23/20 11:48 Blood Pressure 129/78 03/23/20 11:48 Blood Pressure Position Sitting 03/23/20 11:48 Pulse Oximetry 97 03/23/20 11:48 Oxygen Delivery Method Room Air 03/23/20 11:48 Oxygen Flow Rate 0 03/23/20 11:48 Pain Level 3 03/23/20 11:48
== END 2020-03-23 12:50 | disposition home or self-care (01) ==
PROVIDERS: Emergency Provider Registered Nurse Emergency; PCP Internal Medicine
DX: I82.611 Acute embolism and thrombosis of superficial veins of right upper extremity (principal); Y84.8 Other medical procedures as the cause of abnormal reaction of the patient, or of later complication, without mention of misadventure at the time of the procedure; D68.51 Activated protein C resistance; Z86.711 Personal history of pulmonary embolism

== ENCOUNTER 2020-03-23 13:36 | Outpatient (CLI) | payer MEDICAID, SELFPAY ==
--- NOTE | 2020-03-23 | DI.US_ITS ---
EXAM: US UPPER EXTREMITY VENOUS RT CLINICAL HISTORY: RT ARM PAIN, ? DVT TECHNIQUE: Ultrasound performed using standard protocol. COMPARISON: No exams were available for comparison FINDINGS: Duplex evaluation of the deep venous system of the right upper extremity was performed according to t ambrosio usual protocol. There is extensive visible thrombus in the basilic vein from mid humeral level ex tending distally to the level of the wrist. No additional thrombus identified. IMPRESSION: Examination is positive for extensive thrombus basilic vein as described above. DATA REPOSITORY:
== END 2020-03-23 13:56 ==
PROVIDERS: PCP Internal Medicine; Visit Provider Emergency Medicine
DX: I82.611 Acute embolism and thrombosis of superficial veins of right upper extremity (principal)
CPT/HCPCS: 93971

== ENCOUNTER 2020-04-02 22:38 | Observation (INO) | payer MEDICAID, SELFPAY ==
[2020-04-02] VITALS (11 sets, daily range): BP systolic 125–165; BP diastolic 76–92; PULSE 62–68; RESP 16–25; TEMP 36.4; O2SAT 95–97
--- NOTE | 2020-04-02 22:30 | RT.EKG_ITS ---
APPROVED REPORT Exam: Resting ECG Patient Location: E HR:63 bpm ECG Measurements Heart Rate 63 AXIS IL 161 P 45 QRSd 170 QRS -37 QT 458 T 29 QTc 469 Conclusion Sinus rhythm...normal P axis, V-rate 60- 99 Right bundle branch block...QRSd>120, terminal axis(90,270). Sinus. RBBB. No STEMI. Nondiagnostic.
--- NOTE | 2020-04-02 22:49 | ED.GENADUL_ITS ---
Discharge Plan Disposition Patient Disposition: [facility] INPATIENT Condition: Stable Discharge Details Chief Complaint: Chest Pain Clinical Impression: Pulmonary embolism, History of factor V Leiden mutation Primary Care Provider: Faraz Frank ED Provider: Solange Daniels Home Meds and New Rx's Prescriptions: No Action aspirin 81 MG tablet,delayed release (DR/EC) 81 mg PO DAILY RF: 0 simvastatin [Zocor] 20 MG tablet 20 mg PO DAILY RF: 0 amoxicillin-pot clavulanate [Augmentin] 875-125 mg tablet 1 tab PO BID Qty: 14 RF: 0 Eliquis DVT-PE Treat 30D Start 5 mg (74 tabs) tablets,dose pack See Rx Instructions .ROUTE .COMPLEX Qty: 74 RF: 0 Medical Decision Making 0 -- 64-year-old male with a history of neurofibromatosis, factor V Leiden, history of PE, and recently diagnosed right upper extremity DVT secondary to peripheral IV presents for pleuritic and reproducible left-sided chest pain with palpation and movement since 8 PM this evening. EKG notes a rate of 63, sinus, right bundle branch block but no acute ST-T wave ischemic changes. No old EKG to compare. His blood pressure is mildly hypertensive but otherwise vitals within normal limits. He has significant tenderness to palpation of the left anterior inferior lateral ribs. His lungs are otherwise clear. Suspect most likely muscular. Considering patient's history, will place an IV, screening labs, CT chest to rule out PE and place Lidoderm patch. 0100 --labs and imaging reviewed. Normal white blood cell count, coagulation studies, troponin. CT chest noted a 4 mm right lower lobe PE. No evidence of right heart strain. Case discussed with hospitalist. Unclear if current PE is cause of patient's pain and would like hematology consult for recommendations. Case discussed with [facility] hematology who recommends observation overnight, stopping Eliquis, and starting Lovenox and Coumadin until INR therapeutic. Recommends follow-up with coagulation specialist at [facility] after discharge. Case discussed with hospitalist who accepts patient for admission. Patient agreeable with plan. Medical Records Medical records reviewed: Yes I reviewed the patient's medical records. Lab Data Lab results reviewed: Yes I reviewed the patient's lab results. Labs: Laboratory Tests Range/Units 04/02/20 04/02/20 04/02/20 23:25 23:25 23:25 WBC (4.4-10.8) 10^3/uL 5.78 RBC (4.36-5.78) 10^6/uL 4.61 Hgb (13.5-17.5) g/dL 13.6 Hct (40.0-50.0) % 39.6 L MCV (80-95) fL 85.9 MCH (27.0-33.0) pg 29.5 MCHC (32.0-36.0) % 34.3 RDW (11.8-14.1) % 12.6 Plt Count (130-400) 10^3/uL 183 MPV (8.0-11.0) fL 10.1 Immature Gran % 0.3 Neutrophils % 44.9 Lymphocytes % 40.3 Monocytes % 7.4 Eosinophils % 6.2 Basophils % 0.9 Nucleated RBC % % 0 Absolute Neutrophils (1.2-6.7) 10^3/uL 2.59 Absolute Lymphocytes (1.2-3.4) 10^3/uL 2.33 Absolute Monocytes (0.1-0.8) 10^3/uL 0.43 Absolute Eosinophils (0.0-0.7) 10^3/uL 0.36 Absolute Basophils (0.0-0.2) 10^3/uL 0.05 PT (9.3-11.0) sec 10.6 INR (0.9-1.1) 1.1 APTT (21.0-31.4) sec 25.4 Sodium (136-145) mmol/L 140 Potassium (3.5-5.1) mmol/L 3.9 Chloride (98-107) mmol/L 105 Carbon Dioxide (21.0-32.0) mmol/L 30.1 Anion Gap (3-11) mmol/L 4.9 BUN (7-18) mg/dL 18 Creatinine (0.70-1.30) mg/dL 1.30 Estimated GFR/1.73 m2 (mL/min/1.73m2) 55.58 Glucose (74-106) mg/dL 106 Calcium (8.5-10.1) mg/dL 8.3 L Magnesium (1.8-2.4) mg/dL 2.2 Total Bilirubin (0.2-1.0) mg/dL 1.6 H AST (15-37) U/L 25 ALT (16-63) U/L 34 Alkaline Phosphatase (46-116) U/L 81 Troponin I (<0.06) ng/mL < 0.05 Total Protein (6.4-8.2) g/dL 6.9 Albumin (3.4-5.0) g/dL 3.8 ECG Data Attestation: I personally reviewed and interpreted this ECG (s) as follows: Interpretation: Rate of 63, sinus, no acute ST elevation or depression. Right bundle branch block. No old EKG to compare. FL 163 QTc 469. HPI General Mode of arrival: ambulatory . Date/Time Provider Initiated Documentation: 04/02/20 22:39 . Limitations to Documentation: no limitations . Information obtained by: patient . HPI Narrative: Patient is a 64-year-old male with a history of factor V Leiden and PE and recently diagnosed right upper extremity DVT secondary to peripheral IV was currently on Eliquis presents for left-sided chest pain that started this evening while walking. He describes the pain as constant, sharp, worse with movement, palpation and deep breath. He states he has been working a lot around the house and outside and was operating a tractor today and picking up around outside. He denies any fever, cough, shortness of breath, nausea, vomiting, dizziness. He states he called his PCP for the symptoms and was advised that this was likely muscular. Due to his history of factor V Leiden and recently diagnosed DVT, patient further discussed with his PCP and was advised to come to the ER for evaluation to rule out PE. Related Data Home Medications Medication Instructions Recorded Confirmed aspirin 81 mg PO DAILY tab-cap 06/09/14 04/02/20 simvastatin [Zocor] 20 mg PO DAILY tab-cap 06/09/14 04/02/20 amoxicillin-pot clavulanate 1 tab PO BID #14 tab 03/23/20 04/02/20 [Augmentin] apixaban [Eliquis DVT-PE Treat 30D See Rx Instructions .ROUTE 03/23/20 04/02/20 Start] .COMPLEX #74 dose pk Previous Rx's Medication Instructions Recorded amoxicillin-pot clavulanate 1 tab PO BID #14 tab 03/23/20 [Augmentin] apixaban [Eliquis DVT-PE Treat 30D See Rx Instructions .ROUTE 03/23/20 Start] .COMPLEX #74 dose pk Allergies Allergy/AdvReac Type Severity Reaction Status Date / Time No Known Allergies Allergy Unverified 04/02/20 22:51 General Stated Complaint: Chest Pain AGAPITO: 2 Review of Systems All systems reviewed & are unremarkable except as noted in HPI and below Constitutional Constitutional: Reports as per HPI, Denies chills and Denies fever(s) Eyes Eyes: Denies blurry vision ENT Ears, Nose, Mouth, and Throat: Denies dizziness, Denies sore throat and Denies throat swelling Cardiovascular Cardiovascular: Reports chest pain and Denies dyspnea Respiratory Respiratory: Denies cough and Denies dyspnea Gastrointestinal Gastrointestinal: Denies abdominal pain, Denies diarrhea and Denies vomiting Genitourinary Genitourinary: Denies hematuria and Denies dysuria Musculoskeletal Musculoskeletal: Denies back pain and Denies numbness Integumentary/Breasts Skin/Breast: Denies lesions and Denies rash Neurologic Neurologic: Denies dizziness, Denies localized weakness and Denies numbness Allergic/Immunologic Allergic/Immunologic: Denies throat swelling [facility] Medical History (Updated 04/03/20 @ 01:48 by Solange Daniels DO) Diverticulitis of colon with perforation (Inactive) Factor 5 Leiden mutation, heterozygous (Acute) Hyperlipidemia (Acute) Umbilical hernia (Inactive) Surgical History S/P colonoscopy (Acute) Social History Smoking/Tobacco Use Status: Never Alcohol Intake: never Drug use: Never Substance use type: does not use Do you feel safe at home: Yes Do you feel safe in your relationship?: Yes Exam Const General: cooperative, healthy appearing and no acute distress HENIA Head: normal to inspection Face and sinus: normal facial exam Eyes General: appearance normal, both eyes and all related structures Pupils: PERRL EOM: EOM intact bilaterally Neck Neck: normal visual inspection and No submandibular swelling Lymphatic: no lymphadenopathy noted Chest Chest: normal inspection of the chest and tenderness Chest/axillae images: 1. Significant tenderness to palpation of left anterior inferior lateral chest. No evidence of rash, trauma, crepitus, step-off. Resp Effort & Inspection: normal respiratory effort and able to speak in complete sentences Auscultation: clear to auscultation bilaterally Cardio Rate: regular rate Rhythm: regular rhythm GI Inspection: normal to inspection Palpation: soft, not firm, not rigid and nontender Auscultation: normal bowel sounds Skin General skin exam: no rashes or lesions noted Neuro General: patient alert, patient awake and patient oriented x3 Cognition: normal cognition Speech: speech normal Motor: muscle tone normal throughout Sensory Exam: no sensory deficits noted Extrem General: normal to inspection, full ROM, capillary refill normal, no calf tenderness bilaterally and no edema Psych Appearance: grossly normal Mental Status: mental status grossly normal Speech and Movement: speech and movement normal Affect: normal affect Course Vital Signs Vital signs: Vital Signs Temperature 97.5 F L 04/02/20 22:42 Pulse 65 04/02/20 22:42 Respiratory Rate 18 04/02/20 22:42 Blood Pressure 160/83 H 04/02/20 22:42 Pulse Oximetry 96 04/02/20 22:42 Temperature 97.5 F L 04/02/20 22:42 Temperature Source Tympanic 04/02/20 22:42 Pulse 65 04/02/20 22:42 Respiratory Rate 18 04/02/20 22:45 Respiratory Effort 04/02/20 22:45 Respiratory Depth Shallow 04/02/20 22:45 Respiratory Pattern Normal 04/02/20 22:45 Blood Pressure 160/83 H 04/02/20 22:42 Pulse Oximetry 96 04/02/20 22:42 Oxygen Delivery Method Room Air 04/02/20 22:42 Oxygen Flow Rate 0 04/02/20 22:42 Pain Level 2 04/02/20 22:42
--- NOTE | 2020-04-02 23:15 | DI.CT_ITS ---
EXAM: CT CHEST PE CTA CLINICAL HISTORY: L sided pleuritic chest pain/h/o factor V leiden. TECHNIQUE: Imaging Protocol: Axial CT angiography was performed with multi-slice acquisition and mu lti-planar and/or 3D reconstructions. CONTRAST MATERIAL: Intravenous: Omnipaque 350 Contrast volume:100 cc COMPARISON: CT CT ABDOMEN PELVIS W from 03/01/2020 FINDINGS: Pulmonary Arteries: There is a small focal filling defect in a right lower lobe segmental pulmonary a rtery. The findings likely represent an old thrombus. It is of low density. Contrast is seen distal to the lesion. Tracheobronchial tree: Patent where visualized. Mediastinum and Marilu: No dominant adenopathy or fluid collection. Pulmonary parenchyma: No consolidation or dominant measurable mass. No architectural distortion. Pleura: No effusion or pneumothorax. Heart: The heart is not dilated. No coronary artery calcifications are seen. Aorta: Thoracic aorta non-dilated. Upper abdomen: Fatty liver. Bones: Mild midthoracic compression fractures. IMPRESSION: Small focal filling defect in a right lower lobe segmental pulmonary artery. RADIATION DOSE DELIVERED: Total DLP DATA REPOSITORY: All CT scans at this facility are submitted to the National Radiology Data Registry (NRDR) Dose Index Registry (DIR) with the [employer] (A[employer]). RADIATION OPTIMIZATION: All CT scans at this facility use at least one of these dose optimization te chniques: automated exposure control; mA and/or kV adjustment per patient size (includes targeted exa ms where dose is matched to clinical indication); or iterative reconstruction.
[2020-04-02 23:33] LABS: Abs Immature Grans 0.02 10^3/uL (0.0-0.06); Absolute Basophil Count 0.05 10^3/uL (0.0-0.2); Absolute Eosinophil Count 0.36 10^3/uL (0.0-0.7); Absolute Lymphocyte Count 2.33 10^3/uL (1.2-3.4); Absolute Monocyte Count 0.43 10^3/uL (0.1-0.8); Absolute Neutrophil Count 2.59 10^3/uL (1.2-6.7); Basophils % 0.9; Eosinophils % 6.2; HCT 39.6 % (40.0-50.0); HGB 13.6 g/dL (13.5-17.5); Immature Grans % 0.3; Lymphocytes % 40.3; MCH 29.5 pg (27.0-33.0); MCHC 34.3 % (32.0-36.0); MCV 85.9 fL (80-95); MPV 10.1 fL (8.0-11.0); Monocytes % 7.4; Neutrophils % 44.9; Nucleated RBC 0 %; Platelet Count 183 10^3/uL (130-400); RBC 4.61 10^6/uL (4.36-5.78); RDW 12.6 % (11.8-14.1); RDW-SD 39.3 fL; WBC 5.78 10^3/uL (4.4-10.8)
[2020-04-02] MEDS: Normal Saline 500 ML IV (23:37)
[2020-04-02] MEDS: Lidocaine 5% Patch 1 PATCH TP (23:37)
[2020-04-02 23:48] LABS: ALT 34 U/L (16-63); AST 25 U/L (15-37); Albumin 3.8 g/dL (3.4-5.0); Alkaline Phosphatase 81 U/L (46-116); Anion Gap 4.9 mmol/L (3-11); BUN 18 mg/dL (7-18); Bilirubin, Total 1.6 mg/dL (0.2-1.0); CO2 30.1 mmol/L (21.0-32.0); Calcium 8.3 mg/dL (8.5-10.1); Chloride 105 mmol/L (98-107); Estimated GFR 55.58 (mL/min/1.73m2); Glucose 106 mg/dL (74-106); Magnesium 2.2 mg/dL (1.8-2.4); Potassium 3.9 mmol/L (3.5-5.1); Sodium 140 mmol/L (136-145); Total Protein 6.9 g/dL (6.4-8.2)
[2020-04-03 00:02] LABS: Troponin I < 0.05 ng/mL (<0.06)
[2020-04-03 00:17] LABS: INR 1.1 (0.9-1.1); PTT Activated 25.4 sec (21.0-31.4); Prothrombin Time 10.6 sec (9.3-11.0)
[2020-04-03] MEDS: Omnipaque 350 MG/ML 100 ML BTL IJ (00:36)
[2020-04-03] MEDS: Normal Saline - Diluent 50 ML VIAL IV (00:37)
--- NOTE | 2020-04-03 00:59 | DI.VRAD_ITS ---
PROCEDURE INFORMATION: Exam: CT Angiography Chest With Contrast Exam date and time: 04/02/2020 12:21 AM Age: 64 years old Clinical indication: Pleuordynia; Patient HX: L sided pleuritic chest pain, h/o factor v leiden TECHNIQUE: Imaging protocol: Computed tomographic angiography of the chest with intravenous contrast. 3D rendering (Not supervised by radiologist): MIP and/or 3D reconstructed images were created by the technologist. COMPARISON: No relevant prior studies available. FINDINGS: Pulmonary arteries: There is a 4 mm filling defect in a single right lower lobe segmental branch (series 6, image 274). No other filling defects are demonstrated. Aorta: Unremarkable. No aortic aneurysm. No aortic dissection. Lungs: There is mild dependent atelectasis. No focal area of consolidation. Pleural space: Unremarkable. No pneumothorax. No pleural effusion. Heart: Unremarkable. No cardiomegaly. No pericardial effusion. Lymph nodes: Unremarkable. No enlarged lymph nodes. Bones/joints: There is minimal anterior wedging of T6 and T7 vertebral bodies of indeterminate age. The bones are otherwise unremarkable. Soft tissues: Unremarkable. IMPRESSION: 1. There is a tiny (4 mm) filling defect in a single right lower lobe segmental branch consistent with a small pulmonary embolus. No other emboli. 2. Minimal anterior wedging of T6 and T7 vertebral bodies of indeterminate age. Findings were discussed with cedric abbott at 04/03/2020 12:58 AM EDT. Dictated and Authenticated by: Neto Mendes MD. Ordering:NITIN Narvaez MD
[2020-04-03 01:13] VITALS: O2SAT 98
[2020-04-03 01:15] VITALS: BP 131/83; PULSE 56; PULSE 58; RESP 18; O2SAT 96
[2020-04-03] MEDS: Enoxaparin 120 MG/0.8 ML SYR 113 MG SC (01:49)
[2020-04-03 03:31] VITALS: BP 126/80; PULSE 59; RESP 16; TEMP 36.3; O2SAT 95
[2020-04-03 07:51] VITALS: BP 127/72; PULSE 60; RESP 17; TEMP 36; O2SAT 95
--- NOTE | 2020-04-03 08:10 | W.PM.HP.N ---
Date of service: 04/03/20 Time of Service: 08:10 Assessment and Plan Assessment and plan (1) Pulmonary embolism: Status: Chronic Assessment and plan: Small PE found on CTA, 4 mm in the right lower lobe. The question is whether this was present all along i.e. present during the right upper extremity DVT episode. Per hematology at [facility] [place], will stop the Eliquis and bridge with Lovenox. The plan would be to start warfarin today. Continue bridge Lovenox until INR is therapeutic. Further follow-up with hematology as recommended. There are no significant respiratory complications at this time. (2) Deep vein thrombosis (DVT) of right upper extremity: Status: Acute Assessment and plan: Failed Eliquis therapy now starting on warfarin therapy. The right upper extremity showed no significant abnormality. (3) History of factor V Leiden mutation: Status: Acute Assessment and plan: This was diagnosed greater than 20 years ago. He was on anticoagulation for some period of time 2 decades ago but stopped when he started cholesterol medicine. This apparently is the next subsequent clotting event since that time. Further follow-up with hematology recommended. He is likely looking at lifelong anticoagulation. (4) Diverticulitis of colon with perforation: Status: Acute Assessment and plan: Benign abdomen today. He is due for further follow-up for colonoscopy. Qualifiers: Diverticulitis bleeding: without bleeding Qualified Code(s): K57.20 - Diverticulitis of large intestine with perforation and abscess without bleeding History of Present Illness History of Present Illness Chief Complaint: Pulmonary embolus Narrative: This is a 64-year-old man with factor V Leiden mutation who was recently diagnosed with a right upper extremity DVT and placed on Eliquis. He had been hospitalized 03/02/2020 with diverticulitis and microperforation. He was treated with IV antibiotics and discharged on oral Augmentin. The IV site became swollen and an ultrasound revealed DVT. He started Eliquis on 03/23/2020. He completed the 10 mg twice daily for 7 days and is now on 5 mg twice daily. At 8 PM on 04/02/2020 he developed some left-sided chest discomfort. It hurt to move. He described palpitations. In the emergency room his EKG showed no abnormality the troponin was normal. A CT chest PE protocol revealed a 4 mm pulmonary embolism in the right lower lobe. He was again asked about the chest discomfort and he thought there may be some discomfort on the right as well as the left. Hematology at [facility] was consulted about changing his blood thinner. They felt the most cautious route would be to discontinue the Eliquis, start Lovenox bridge, start him on warfarin bridged with Lovenox until therapeutic. They recommended outpatient hematology follow-up. He is admitted for observation. Review of Systems Narrative: He generally feels well. This morning he can detect some discomfort on the left side, none on the right. He noticed it when he tried to sit up. He otherwise does not describe anything like chest pain or pressure. No pleuritic pain. His breathing is completely nonlabored. He has no cough. He has not had hemoptysis. His abdominal pain is completely gone away. His appetite is normal. He describes no other systemic symptoms. [facility] Medical History (Updated 04/03/20 @ 08:16 by Masood Johnston MD) Diverticulitis of colon with perforation (Acute) Factor 5 Leiden mutation, heterozygous (Acute) Hyperlipidemia (Acute) Umbilical hernia (Inactive) Surgical History S/P colonoscopy (Acute) Social History Smoking/Tobacco Use Status: Never Alcohol Intake: never Drug use: Never Substance use type: does not use Do you feel safe at home: Yes Do you feel safe in your relationship?: Yes Meds Home Medications and Allergies Home Medications Medication Instructions Recorded Confirmed Type aspirin 81 mg PO DAILY tab-cap 06/09/14 04/02/20 History simvastatin [Zocor] 20 mg PO DAILY tab-cap 06/09/14 04/02/20 History amoxicillin-pot clavulanate 1 tab PO BID #14 tab 03/23/20 04/02/20 Rx [Augmentin] apixaban [Eliquis DVT-PE Treat 30D See Rx Instructions .ROUTE 03/23/20 04/02/20 Rx Start] .COMPLEX #74 dose pk Allergies Allergy/AdvReac Type Severity Reaction Status Date / Time No Known Allergies Allergy Unverified 04/02/20 22:51 Exam Narrative Exam Narrative: On exam he is sleeping quietly, he arouses appropriately. His speech is clear. His thought processes appear to be normal though his ability to give historical information does seem somewhat limited. His lung sounds are clear. His breathing is nonlabored. His heart sounds are regular I do not detect any murmur. His abdomen is quite markedly obese but overall soft and nontender. There is a small umbilical hernia. The lower extremities are well perfused. There is no skin abnormalities. Neurologically he moves upper and lower extremities without any apparent decrement of function. Results Labs Result diagrams: 04/02/20 23:25 04/02/20 23:25 Labs: Laboratory Results - last 24 hr 04/02/20 04/02/20 04/02/20 23:25 23:25 23:25 WBC 5.78 RBC 4.61 Hgb 13.6 Hct 39.6 L MCV 85.9 MCH 29.5 MCHC 34.3 RDW 12.6 Plt Count 183 MPV 10.1 Immature Gran % 0.3 Neutrophils % 44.9 Lymphocytes % 40.3 Monocytes % 7.4 Eosinophils % 6.2 Basophils % 0.9 Nucleated RBC % 0 Absolute Neutrophils 2.59 Absolute Lymphocytes 2.33 Absolute Monocytes 0.43 Absolute Eosinophils 0.36 Absolute Basophils 0.05 PT 10.6 INR 1.1 APTT 25.4 Sodium 140 Potassium 3.9 Chloride 105 Carbon Dioxide 30.1 Anion Gap 4.9 BUN 18 Creatinine 1.30 Estimated GFR/1.73 m2 55.58 Glucose 106 Calcium 8.3 L Magnesium 2.2 Total Bilirubin 1.6 H AST 25 ALT 34 Alkaline Phosphatase 81 Troponin I < 0.05 Total Protein 6.9 Albumin 3.8 Last Vital Signs Temp 36.0 C L 04/03/20 07:51 Pulse 60 04/03/20 07:51 Resp 17 04/03/20 07:51 BP 127/72 04/03/20 07:51 Pulse Ox 95 04/03/20 07:51 COVID-19 Screening Have you,or household,traveled outside [place] in last 14 days?: No Had IN PERSON contact w/suspected or confirmed C-19 person: No
[2020-04-03 11:19] VITALS: BP 97/65; PULSE 56; RESP 17; TEMP 36.8; O2SAT 95
--- NOTE | 2020-04-03 11:43 | DSE_ITS ---
Date of service: 04/03/20 Time of Service: 11:43 DS: Diagnosis Discharge Diagnosis (1) Pulmonary embolism: Status: Chronic (2) Deep vein thrombosis (DVT) of right upper extremity: Status: Acute (3) History of factor V Leiden mutation: Status: Acute (4) Diverticulitis of colon with perforation: Status: Acute Discharge Plan Disposition Patient Disposition: HOME Condition: Stable Discharge Details Chief Complaint: Chest Pain Clinical Impression: Pulmonary embolism, History of factor V Leiden mutation Reason For Visit: PULMONARY EMBOLISM,RUE DVT ON ELIQUIS,H/O FACTOR V Admit Date/Time: 04/03/20 01:42 Admit Provider: Masood Johnston Attending Provider: Masood Johnston Primary Care Provider: Faraz Frank ED Provider: Solange Daniels Hospital Course Hospital Course: This is a 6 yo male with a h/o Factor V Leiden mutation, pulmonary embolism, recent diverticulitis with microperforation and recent RUE DVT. He was placed on Eliquis over 1 week ago after noting swelling and pain in the RUE; the arm that had an IV when hospitalized for the microperforation. On 04/02/2020 at 8 PM he noted left-sided chest discomfort that radiated to the left scapula. He noted it worsened with movement. + palpitations. He though it felt similar to the distant pulmonary embolism he had experienced. In the ED his EKG and troponin were normal. CTA chest showed a small, 4mm filling defect / pulmonary embolism in a R subsegmental artery. Hematology at [facility] consulted regarding advice on anticoagulation the night of admission and then again the following day before discharge. The following AM he felt his discomfort was 80% better. He did have some mild tenderness at the L costchondral margins with compression. A lidoderm patch had been place on the left. An initial dose of therapeutic Lovenox was given in the ED. Given that he had been on the Eliquis for less than 2 weeks and the likelyhood that the small P.E. occurred at the time of the RUE DVT and therefore prior to the initiation of Eliquis, he will remain on Eliquis. It is recommended that he f/u with the thrombosis clinic at [facility]. F/U with PCP in 1-2 weeks Schedule appointment with [facility] thrombosis clinic Home Meds and New Rx's Prescriptions: Continued aspirin 81 MG tablet,delayed release (DR/EC) 81 mg PO DAILY RF: 0 simvastatin [Zocor] 20 MG tablet 20 mg PO DAILY RF: 0 amoxicillin-pot clavulanate [Augmentin] 875-125 mg tablet 1 tab PO BID Qty: 14 RF: 0 Eliquis DVT-PE Treat 30D Start 5 mg (74 tabs) tablets,dose pack See Rx Instructions .ROUTE .COMPLEX Qty: 74 RF: 0 Discharge Instructions Instructions: Pulmonary Embolism (DC) Stand Alone Forms: Nursing Discharge Form Referrals: Faraz Frank MD [Primary Care Provider] - (Please call office on Saturday to make a follow up appointment for 1-2 weeks.) Activity:: Activity as Tolerated Equipment/Supplies:: No Equipment Needed Diet:: As Tolerated Discharge Orders Discharge Orders: Discharge Order (Routine); Ordered 04/03/20 Ordered By: Jacinto Aguilar Discharge Data Discharge Date/Time-TO BE ENTERED AT DEPARTURE: 04/03/20 12:43 DS: Summary Status at Discharge Functional status at discharge: independent ambulation Overall status at discharge: patient is progressing back to baseline Mental Status: mental status grossly normal Speech and Movement: speech and movement normal Mood: congruent mood Affect: normal affect Exam Const General: cooperative and no acute distress Chest Chest: other (mild tenderness at costochondral margins on the left) Resp Effort & Inspection: normal respiratory effort Auscultation: clear to auscultation bilaterally Cardio Rate: regular rate Rhythm: regular rhythm Heart Sounds: S1 normal and S2 normal GI Inspection: normal to inspection Percussion: normal to percussion Auscultation: normal bowel sounds Extrem General: normal to inspection, no pedal edema and no calf tenderness Psych Appearance: grossly normal Mental Status: mental status grossly normal Speech and Movement: speech and movement normal Mood: congruent mood Affect: normal affect Thought Process: normal Insight: insight good DS: Data Vitals/I&O Vitals and I&O: Vital Signs Temperature 36.8 C 04/03/20 11:19 Temperature Source Tympanic 04/03/20 11:19 Pulse 56 L 04/03/20 11:19 Pulse Rhythm Irregular 04/03/20 09:38 Pulse 56 L 04/03/20 01:15 Respiratory Rate 17 04/03/20 11:19 Respiratory Effort 04/03/20 09:38 Respiratory Depth Normal 04/03/20 09:38 Respiratory Pattern Normal 04/03/20 09:38 Blood Pressure 97/65 L 04/03/20 11:19 Blood Pressure Mean 93 04/03/20 01:15 Pulse Oximetry 95 04/03/20 11:19 Oxygen Delivery Method Room Air 04/03/20 11:19 Oxygen Flow Rate 0 04/03/20 11:19 Pain Level 0 04/03/20 11:19 Intake & Output 04/02/20 04/02/20 04/03/20 11:59 23:59 11:59 Intake Total 750 / 750 Balance 750 / 750 Weight 113.398 kg 113.398 kg Intake: IV 500 / 500 Oral 250 / 250 Other: Urine Color Yellow Urine Appearance Clear Urine Odor Normal Voiding Methods Toilet Data Completed and Pending Labs on day of discharge: Labs from last 24 hours 04/03/20 04/02/20 04/02/20 02:10 23:25 23:25 WBC 5.78 RBC 4.61 Hgb 13.6 Hct 39.6 L MCV 85.9 MCH 29.5 MCHC 34.3 RDW 12.6 Plt Count 183 MPV 10.1 Immature Gran % 0.3 Neutrophils % 44.9 Lymphocytes % 40.3 Monocytes % 7.4 Eosinophils % 6.2 Basophils % 0.9 Nucleated RBC % 0 Absolute Neutrophils 2.59 Absolute Lymphocytes 2.33 Absolute Monocytes 0.43 Absolute Eosinophils 0.36 Absolute Basophils 0.05 PT 10.6 INR 1.1 APTT 25.4 Sodium Potassium Chloride Carbon Dioxide Anion Gap BUN Creatinine Estimated GFR/1.73 m2 Glucose Calcium Magnesium Total Bilirubin AST ALT Alkaline Phosphatase Troponin I Total Protein Albumin COVID-19 PCR Pending Nasopharyn COVID-19 PCR Pending Ref Test Perform Site Pending 04/02/20 23:25 WBC RBC Hgb Hct MCV MCH MCHC RDW Plt Count MPV Immature Gran % Neutrophils % Lymphocytes % Monocytes % Eosinophils % Basophils % Nucleated RBC % Absolute Neutrophils Absolute Lymphocytes Absolute Monocytes Absolute Eosinophils Absolute Basophils PT INR APTT Sodium 140 Potassium 3.9 Chloride 105 Carbon Dioxide 30.1 Anion Gap 4.9 BUN 18 Creatinine 1.30 Estimated GFR/1.73 m2 55.58 Glucose 106 Calcium 8.3 L Magnesium 2.2 Total Bilirubin 1.6 H AST 25 ALT 34 Alkaline Phosphatase 81 Troponin I < 0.05 Total Protein 6.9 Albumin 3.8 COVID-19 PCR Nasopharyn COVID-19 PCR Ref Test Perform Site [facility] Medical History (Updated 04/03/20 @ 08:16 by Masood Johnston MD) Diverticulitis of colon with perforation (Acute) Factor 5 Leiden mutation, heterozygous (Acute) Hyperlipidemia (Acute) Umbilical hernia (Inactive) Surgical History S/P colonoscopy (Acute) Social History Smoking/Tobacco Use Status: Never Alcohol Intake: never Drug use: Never Substance use type: does not use Do you feel safe at home: Yes Do you feel safe in your relationship?: Yes
[2020-04-04 07:08] LABS: COVID-19 RT-PCR UVMMC Result Negative (Negative)
== END 2020-04-03 12:43 | disposition home or self-care (01) ==
LOC: ER 04-03 02:04 → MS 04-03 03:24
PROVIDERS: Admitting Provider Family Medicine; Emergency Provider Physician Assistant; PCP Internal Medicine; Visit Provider Family Medicine
DX: I26.99 Other pulmonary embolism without acute cor pulmonale (principal); Z11.59 Encounter for screening for other viral diseases; I82.621 Acute embolism and thrombosis of deep veins of right upper extremity; Z79.01 Long term (current) use of anticoagulants; D68.51 Activated protein C resistance; E78.5 Hyperlipidemia, unspecified
CPT/HCPCS: 36415; 71275; 80053; 93005; 96360; 96372; 99217; 99220; 99285; U0003; 83735; 84484; 85025; 85610; 85730; 93010; G0378; J1650; J3490

== ENCOUNTER 2020-04-29 03:44 | Outpatient (CLI) | payer MEDICAID, SELFPAY ==
[2020-04-30 20:54] LABS: COVID-19 RT-PCR Result NEGATIVE (Negative)
== END 2020-04-29 04:04 ==
PROVIDERS: PCP Internal Medicine; Visit Provider Surgery
DX: Z11.59 Encounter for screening for other viral diseases (principal); Z01.818 Encounter for other preprocedural examination
CPT/HCPCS: U0003

== ENCOUNTER 2020-08-05 02:10 | Outpatient (CLI) | payer MEDICAID, SELFPAY ==
[2020-08-06 15:49] LABS: COVID-19 RT-PCR Result NEGATIVE (Negative)
== END 2020-08-05 02:30 ==
PROVIDERS: PCP Internal Medicine; Visit Provider Surgery
DX: Z11.52 Encounter for screening for COVID-19 (principal); Z01.818 Encounter for other preprocedural examination
CPT/HCPCS: U0003

== ENCOUNTER 2020-08-10 11:13 | Day surgery (SDC) | payer MEDICAID, SELFPAY ==
[2020-08-10] VITALS (7 sets, daily range): BP systolic 92–143; BP diastolic 50–81; PULSE 46–67; RESP 10–18; TEMP 36.2–36.6; O2SAT 93–97
--- NOTE | 2020-08-10 08:08 | W.PREOPHP ---
Date of service: 08/10/20 Time of Service: 12:09 Assessment and Plan Assessment and plan (1) Umbilical hernia: Status: Acute Assessment and plan: Mr. Zepeda is a 65 year old male with a Factor V Leiden deficiency on eliquis who is here today for a umbilical hernia repair. Risks, benefits and complications have been reviewed. Complications include but are not limited to bleeding, pain, infection, injury to underlying structures like bowel and adverse reaction to the medication. Questions were entertained and answered to their satisfaction and they wished to proceed. No guarantees were given or implied. Qualifiers: Obstruction and gangrene presence: with obstruction but without gangrene Qualified Code(s): K42.0 - Umbilical hernia with obstruction, without gangrene History of Present Illness Narrative: Duane is doing well. He is here for a follow up to see if we can schedule his surgery. Unfortunately his umbilical hernia surgery had to be postponed because he was diagnosed with a upper extremity DVT at the end of February and then with a small PE at the beginning of March. He had been started on Eliquis in march. He was also diagnosed with Factor V leiden defficiency. He has not had an appointment yet with [facility] to discuss anticoagulation. He otherwise feels well. He doesn't feel that his hernia has gotten any bigger. He still has pain with certain movements. He cant do 100% of his job because of it. He is anxious to have his hernia repaired. Long discussion with him about risks of taking him of Eliquis prematurely for a hernia repair. He did see the thrombosis specialist at [facility] and they stated it was OK to get him of eliquis for surgery. He is here today to have his umbilical hernia repaired. He has not developed any new symptoms since I saw him back in May. Review of Systems Cardiovascular Cardiovascular: Denies chest pain, Denies chest pain at rest, Denies irregular heart rhythm, Denies dyspnea and Denies dyspnea on exertion Respiratory Respiratory: Denies cough, Denies dyspnea and Denies dyspnea on exertion Gastrointestinal Gastrointestinal: Reports as per HPI Genitourinary Genitourinary: Denies dysuria, Reports urinary incontinence and Denies urinary urgency Endocrine Endocrine: Reports system reviewed and no additional complaints, except as documented Hematologic/Lymphatic Hematologic/Lymphatic: Denies easy bruising and Denies lymphadenopathy [facility] Medical History Diverticulitis of colon with perforation DVT (deep venous thrombosis) Factor 5 Leiden mutation, heterozygous Hyperlipidemia Pulmonary embolism Umbilical hernia Surgical History (Updated 08/10/20 @ 11:48 by Gisselle Gill RN) Hx of inguinal hernia repair S/P colonoscopy Social History Smoking/Tobacco Use Status: Never Smoking risk assessment performed?: Yes Alcohol Intake: never Drug use: Never Substance use type: does not use Current gender identity: male Do you feel safe at home: Yes Do you feel safe in your relationship?: Yes Meds Home Medications and Allergies Home Medications Medication Instructions Recorded Confirmed Type aspirin 81 mg PO DAILY tab-cap 06/09/14 08/10/20 History simvastatin [Zocor] 20 mg PO HS tab-cap 06/09/14 08/10/20 History Eliquis DVT-PE Treat 30D Start See Rx Instructions .ROUTE 03/23/20 08/10/20 Rx .COMPLEX #74 dose pk Allergies Allergy/AdvReac Type Severity Reaction Status Date / Time No Known Allergies Allergy Unverified 08/08/20 11:22 Exam Const General: healthy appearing and comfortable [facility] Head: normocephalic and atraumatic Eyes Pupils: PERRL Resp Effort & Inspection: normal respiratory effort Auscultation: clear to auscultation bilaterally Cardio Rate: regular rate Rhythm: regular rhythm Heart Sounds: no click, no gallops and no murmurs GI Inspection: normal to inspection Palpation: soft, no hepatosplenomegaly and hernia umbilical Auscultation: normal bowel sounds
--- NOTE | 2020-08-10 08:12 | ROE_ITS ---
Date of service: 08/10/20 Time of Service: : Operative Note Operative Note DATE OF PROCEDURE: 08/10/20 PRE-OP DIAGNOSIS: Umbilical hernia POST-OP DIAGNOSIS: same PROCEDURE: Umbilical hernia repair with mesh SURGEON: Renuka Riley TREADLE CUT OFF SAW OPERATOR: Cande Claros ANESTHESIA: MAC (ASA 2/ Sotero Villanueva CRNA), regional (Bilateral rectus block) and local (2% Lidocaine) ESTIMATED BLOOD LOSS: 10 PATHOLOGY: none sent COMPLICATIONS: None Patient was transported to: same day Patient's condition: stable Implants: Ventralex ST Hernia Patch 1.7 : LOT [id number] [id number] EXP 2022-03-25 Indications: Mr. Zepeda is a 65 year old male with a Factor V Leiden deficiency on [employer] who is here today for a umbilical hernia repair. Risks, benefits and complications have been reviewed. Complications include but are not limited to bleeding, pain, infection, injury to underlying structures like bowel and adverse reaction to the medication. Questions were entertained and answered to their satisfaction and they wished to proceed. No guarantees were given or implied. Findings: Small 1.5 cm defect with incarcerated pre-peritoneal fat Procedure Description: After informed consent was obtained the patient was taken to the operating room and placed in a supine position. Monitors and SCDs were applied and a timeout was done. The patient's name, date of , procedure type, procedure site, allergies to medications, preoperative antibiotic, and DVT prophylaxis were all reviewed. Fire risk was assessed. Next anesthesia did a bilateral rectus block under ultrasound guidance. Please see their separate dictation. Once anesthesia was done the abdomen was prepped and draped in a sterile surgical fashion. 2% Lidocaine was injected into the dermis just under the umbilicus. An incision was made with a 15 blade under the umbilicus. Dissection was done with cautery through the subcutaneous tissues and through the umbilical stalk down to the fascia. The hernia defect was identified and measured 1.5 cm. There was some incarcerated pre-peritoneal fat and this was removed with cautery. The peritoneum was palpated and no adhesions were noted. The defect was slightly increased in size to 2 cm and a 1.7 inch round mesh was then placed under the peritoneum and secured in 4 quarters with 2-0 Proline. Once the mesh was secured the tissues were irrigated with some normal saline. No bleeding was identified. The fascia was closed over the mesh with 0 vicryl running suture. 2-0 Vicryl was used to secure the umbilicus down to the fascia. The subcutaneous tissue was re-approximated with 2-0 vicryl. The dermis was re- approximated with a running 4-0 Vicryl subcuticular stitch. The skin was cleaned and dried and skin affix was applied. The patient was woken up and taken back to recovery in stable condition. There were no immediate complications. Sponge, instrument and needle counts were correct at the end of the case x2.
--- NOTE | 2020-08-10 08:12 | W.PM.DSUDISC ---
Discharge Plan Disposition Patient Disposition: HOME Condition: Good Discharge Details Reason For Visit: umbilical hernia Attending Provider: Renuka Riley Primary Care Provider: Faraz Frank Home Meds and New Rx's Prescriptions: Continued aspirin 81 MG tablet,delayed release (DR/EC) 81 mg PO DAILY RF: 0 simvastatin [Zocor] 20 MG tablet 20 mg PO HS RF: 0 Eliquis DVT-PE Treat 30D Start 5 mg (74 tabs) tablets,dose pack See Rx Instructions .ROUTE .COMPLEX Qty: 74 RF: 0 Discharge Instructions Instructions: Umbilical Hernia Repair (DC) Additional Instructions: Activity at Home after surgery: 1. Make sure you walk outside at least 4 times per day 2. You should be able to climb a flight of stairs 3. No driving while in pain or taking pain medications 4. No strenuous activity or heavy lifting for 4 weeks (open surgery) Diet, Nutrition, & wound healin. Avoid alcohol until after you are recovered from your surgery 2. Make sure to eat plenty of lean protein (meat, fish, eggs, cottage cheese, beans) 3. Eat a variety of fruits and vegetables. Eat plenty of high fiber foods to avoid constipation. 4. Drink plenty of liquids to stay hydrated and avoid constipation Pain Medications: 1. Tylenol 650 mg every 6 hours as needed. 2. If a narcotic has been prescribed take as directed only for breakthrough pain For Constipation: 1. Take Milk of Magnesia or MiraLax as needed for constipation Other: 1. You may shower daily. Do not scrub the incisions 2. Do not soak the incisions for 1 week 3. You may alternate ice and heat as needed for pain and swelling Wound Care: 1. Keep the incisions clean and dry Please call our office if you develop: 1. Fevers >101.5 2. Nausea or Vomiting 3. Worsening pain 4. Redness and thick discharge from the wounds If after hours please call the Hospital at and ask to speak to the on-call surgeon Referrals: Renuka Riley MD [ [facility] STAFF PHYSICIAN] - 08/26/20 9:30 am Activity:: no lifting >20 lb Diet:: As Tolerated Discharge Orders Discharge Orders: Discharge Order (Routine); Ordered 08/10/20 Ordered By: Renuka Riley DS: Diagnosis Discharge Diagnosis (1) Umbilical hernia: Status: Acute
[2020-08-10] MEDS: Lactated Ringers 1,000 ML 80 ML IV (12:00)
[2020-08-10] MEDS: ceFAZolin 2 GM/50 ML BAG IVPB (12:35)
[2020-08-10] MEDS: Bupivacaine 0.25% Pres-Free 30 ML VIAL (12:40)
[2020-08-10] MEDS: Bupivacaine 0.25% Pres-Free 10 ML VIAL (12:40)
[2020-08-10] MEDS: Lidocaine 2% Multi-Dose 50 ML VIAL (13:19)
== END 2020-08-10 16:48 | disposition home or self-care (01) ==
LOC: SUR 11:13
PROVIDERS: PCP Internal Medicine; Visit Provider Surgery
PROC: (CPT 49585; principal; 2020-08-10 11:30)
DX: K42.0 Umbilical hernia with obstruction, without gangrene (principal); G89.18 Other acute postprocedural pain; D68.51 Activated protein C resistance; Z79.01 Long term (current) use of anticoagulants
CPT/HCPCS: 49585; 76942; NC; C1781; J0690; J1885; J2405

== ENCOUNTER → 2021-03-07 13:34 | Outpatient (BNVA) | payer MEDICARE, OTHER, MEDICAID, SELFPAY | PROVIDERS: PCP Nurse Practitioner Family; Referring Provider Nurse Practitioner Family; Visit Provider Surgery | DX: K57.92 Diverticulitis of intestine, part unspecified, without perforation or abscess without bleeding (principal) | CPT/HCPCS: 99212 ==

== ENCOUNTER 2021-03-28 16:43 | Outpatient (REF) | payer MEDICARE, OTHER, MEDICAID, SELFPAY ==
[2021-03-30 11:57] LABS: COVID-19 RT-PCR UVMMC Result Negative (Negative)
== END 2021-03-28 16:44 | disposition home or self-care (01) ==
LOC: NCHCN 16:43
PROVIDERS: PCP Nurse Practitioner Family; Visit Provider Nurse Practitioner Family
DX: Z20.822 Contact with and (suspected) exposure to COVID-19 (principal)
CPT/HCPCS: U0003; U0005

== ENCOUNTER → 2021-09-13 10:54 | Outpatient (BNVA) | payer MEDICARE, OTHER, SELFPAY | PROVIDERS: PCP Nurse Practitioner Family; Referring Provider Nurse Practitioner Family; Visit Provider Nurse Practitioner Gerontology | DX: N52.9 Male erectile dysfunction, unspecified (principal) | CPT/HCPCS: 99215 ==

== ENCOUNTER 2022-01-18 13:38 | Outpatient (REF) | payer MEDICARE, SELFPAY ==
[2022-01-19 10:39] LABS: Lyme Ab w Rflx to Lyme Confirm Positive (Negative)
[2022-01-19 11:57] LABS: Lyme IgG Ab Positive (Negative); Lyme IgM Ab Positive (Negative)
[2022-01-20 08:21] LABS: Anaplasma phagocytophilum Negative (Negative); B. miyamotoi PCR Negative (Negative); Babesia divergens/MO-1 Negative (Negative); Babesia duncani Negative (Negative); Babesia microti Negative (Negative); Ehrlichia chaffeensis Negative (Negative); Ehrlichia ewingii/canis Negative (Negative); Ehrlichia muris eauclairensis Negative (Negative)
== END 2022-01-18 13:39 | disposition home or self-care (01) ==
LOC: NCHCN 13:38
PROVIDERS: PCP Nurse Practitioner Family; Visit Provider Family Medicine
DX: T14.8XXA Other injury of unspecified body region, initial encounter (principal); W57.XXXA Bitten or stung by nonvenomous insect and other nonvenomous arthropods, initial encounter
CPT/HCPCS: 86617; 87798; 86618

== ENCOUNTER 2022-02-01 20:37 | Outpatient (REF) | payer MEDICARE, OTHER, SELFPAY ==
[2022-02-01 19:00] LABS: HCT 42.1 % (40.0-50.0); HGB 14.1 g/dL (13.5-17.5); MCH 29.9 pg (27.0-33.0); MCHC 33.5 % (32.0-36.0); MCV 89 fL (80-95); MPV 11.5 fL (8.0-11.0); Platelet Count 172 10^3/uL (130-400); RBC 4.71 10^6/uL (4.36-5.78); RDW 12.8 % (11.8-14.1); RDW-SD 42.1 fL; WBC 4.44 10^3/uL (4.4-10.8)
[2022-02-01 19:10] LABS: ALT 41 U/L (16-63); AST 24 U/L (15-37); Albumin 3.9 g/dL (3.4-5.0); Alkaline Phosphatase 121 U/L (46-116); Anion Gap 7.2 mmol/L (3-11); BUN 20 mg/dL (7-18); Bilirubin, Total 1.9 mg/dL (0.2-1.0); CO2 28.8 mmol/L (21.0-32.0); CREATININE 1.1 mg/dL (0.70-1.30); Calcium 8.4 mg/dL (8.5-10.1); Chloride 105 mmol/L (98-107); Glucose 105 mg/dL (74-106); Potassium 4.2 mmol/L (3.5-5.1); Sodium 141 mmol/L (136-145); Total Protein 7.2 g/dL (6.4-8.2)
[2022-02-01 19:24] LABS: Calculated LDL 105 mg/dL (<100); Cholesterol 159 mg/dL (<200); HDL Cholesterol 42 mg/dL (40-60); Triglyceride 64 mg/dL (<150)
[2022-02-02 18:16] LABS: PSA, Screening 1.1 ng/mL (<=4.5)
== END 2022-02-01 20:38 | disposition home or self-care (01) ==
LOC: NCHCN 20:37
PROVIDERS: PCP Nurse Practitioner Family; Visit Provider Nurse Practitioner Family
DX: E78.5 Hyperlipidemia, unspecified (principal); Z12.5 Encounter for screening for malignant neoplasm of prostate; I49.3 Ventricular premature depolarization
CPT/HCPCS: 80053; 80061; 84153; 85027

== ENCOUNTER 2023-02-14 17:04 | Outpatient (REF) | payer MEDICARE, OTHER, SELFPAY ==
[2023-02-14 21:33] LABS: HGB 15.3 g/dL (13.5-17.5); MCH 29.7 pg (27.0-33.0); MCV 87 fL (80-95); MPV 10.8 fL (8.0-11.0); Platelet Count 220 10^3/uL (130-400); RBC 5.16 10^6/uL (4.36-5.78); RDW 12.8 % (11.8-14.1); RDW-SD 40.8 fL; WBC 5.48 10^3/uL (4.4-10.8)
[2023-02-14 21:45] LABS: ALT 32 U/L (16-63); AST 21 U/L (15-37); Albumin 4.5 g/dL (3.4-5.0); Alkaline Phosphatase 80 U/L (46-116); BUN 23 mg/dL (7-18); Bilirubin, Total 2.1 mg/dL (0.2-1.0); CREATININE 1.1 mg/dL (0.70-1.30); Calcium 8.7 mg/dL (8.5-10.1); Calculated LDL 107 mg/dL (<100); Chloride 106 mmol/L (98-107); Cholesterol 175 mg/dL (<200); Estimated GFR 73.58 (mL/min/1.73m2); Glucose 108 mg/dL (74-106); HDL Cholesterol 48 mg/dL (40-60); Potassium 4.7 mmol/L (3.5-5.1); Sodium 142 mmol/L (136-145); Total Protein 7.7 g/dL (6.4-8.2); Triglyceride 103 mg/dL (<150)
[2023-02-15 20:54] LABS: PSA, Screening 1.3 ng/mL (<=4.5)
[2023-02-18 10:12] LABS: Lyme Ab w Rflx to Lyme Confirm Negative (Negative)
[2023-02-19 15:38] LABS: Anaplasma phagocytophilum Negative (Negative); B. miyamotoi PCR Negative (Negative); Babesia divergens/MO-1 Negative (Negative); Babesia duncani Negative (Negative); Babesia microti Negative (Negative); Ehrlichia chaffeensis Negative (Negative); Ehrlichia ewingii/canis Negative (Negative); Ehrlichia muris eauclairensis Negative (Negative)
== END 2023-02-14 17:05 | disposition home or self-care (01) ==
LOC: NCHCN 17:04
PROVIDERS: PCP Nurse Practitioner Family; Visit Provider Nurse Practitioner Family
DX: E78.5 Hyperlipidemia, unspecified (principal); Z12.5 Encounter for screening for malignant neoplasm of prostate; Z11.8 Encounter for screening for other infectious and parasitic diseases
CPT/HCPCS: 80053; 80061; 84153; 85027; 87798; 86618

== ENCOUNTER 2023-02-22 00:54 | Outpatient (CLI) | payer MEDICARE, OTHER, SELFPAY ==
--- NOTE | 2023-02-22 14:50 | DI.RAD_ITS ---
Exam(s) XR KNEE LT 3V AP,LAT,TOM EXAM: XR KNEE LT 3V AP,LAT,TOM CLINICAL HISTORY: LT KNEE PAIN, M25.562. TECHNIQUE: 2D digital imaging was performed of the left knee. Three images were obtained. AP, late ral and PA tunnel views were obtained. COMPARISON: No exams were available for comparison FINDINGS: BONES: No acute fracture is present. No bony destructive lesion is seen. JOINTS: The knee is normally aligned. No joint effusion is seen. SOFT TISSUE: Normal. IMPRESSION: Normal radiographs of the left knee. DATA REPOSITORY: RADIATION DOSE DELIVERED:
== END 2023-02-22 01:14 ==
LOC: DI 00:54
PROVIDERS: PCP Nurse Practitioner Family; Visit Provider Nurse Practitioner Family
DX: M25.562 Pain in left knee (principal)
CPT/HCPCS: 73562

== ENCOUNTER → 2023-03-13 00:54 | Outpatient (CLI) | payer MEDICARE, OTHER, SELFPAY ==
--- NOTE | 2023-03-13 | DI.US_ITS ---
Exam(s) US LOWER EXTREMITY VENOUS LT EXAM: US LOWER EXTREMITY VENOUS LT CLINICAL HISTORY: LEFT LEG PAIN M79.605 HX DVT Z86.718. TECHNIQUE: Lower extremity venous ultrasound performed using grayscale, color-flow, and spectral Do ppler analysis. COMPARISON: CR XR KNEE LT 3V AP,LAT,TOM from 02/22/2023 FINDINGS: The common femoral, femoral and popliteal veins demonstrate normal compressibility, augmentation, and color Doppler. The posterior tibial veins are patent. No saphenous vein thrombosis or other superfi cial venous thrombosis is seen. A small amount fluid is seen in the popliteal fossa which could repr esent a small Torres's cyst. IMPRESSION: Small Torres's cyst.. No evidence of DVT. DATA REPOSITORY:
== END ==
PROVIDERS: PCP Nurse Practitioner Family; Visit Provider Family Medicine
DX: M79.605 Pain in left leg (principal); Z86.718 Personal history of other venous thrombosis and embolism
CPT/HCPCS: 93971

== ENCOUNTER 2024-02-18 21:53 | Outpatient (REF) | payer MEDICARE, OTHER, SELFPAY ==
[2024-02-18 21:43] LABS: HCT 40.8 % (40.0-50.0); HGB 14.1 g/dL (13.5-17.5); MCH 30.1 pg (27.0-33.0); MCHC 34.6 % (32.0-36.0); MCV 87 fL (80-95); MPV 11.5 fL (8.0-11.0); Platelet Count 219 10^3/uL (130-400); RBC 4.68 10^6/uL (4.36-5.78); RDW-SD 41.4 fL; WBC 4.67 10^3/uL (4.4-10.8)
[2024-02-18 22:08] LABS: ALT 28 U/L (16-63); AST 25 U/L (15-37); Albumin 4.4 g/dL (3.4-5.0); Alkaline Phosphatase 91 U/L (46-116); Anion Gap 10.8 mmol/L (3-11); BUN 23 mg/dL (7-18); Bilirubin, Total 2.55 mg/dL (0.2-1.0); CO2 29.2 mmol/L (21.0-32.0); CREATININE 1.3 mg/dL (0.70-1.30); Calcium 9.4 mg/dL (8.5-10.1); Calculated LDL 126 mg/dL (<100); Chloride 106 mmol/L (98-107); Cholesterol 190 mg/dL (<200); Estimated GFR 59.84 (mL/min/1.73m2); Glucose 105 mg/dL (74-106); HDL Cholesterol 51 mg/dL (40-60); Potassium 4.4 mmol/L (3.5-5.1); Sodium 146 mmol/L (136-145); Total Protein 7.7 g/dL (6.4-8.2); Triglyceride 69 mg/dL (<150)
[2024-02-19 18:38] LABS: PSA, Screening 1.6 ng/mL (<=4.5)
== END 2024-02-18 21:54 | disposition home or self-care (01) ==
LOC: NCHCN 21:53
PROVIDERS: PCP Nurse Practitioner Family; Visit Provider Nurse Practitioner Family
DX: Z00.00 Encounter for general adult medical examination without abnormal findings (principal); Z12.5 Encounter for screening for malignant neoplasm of prostate
CPT/HCPCS: 80053; 80061; 84153; 85027

== ENCOUNTER 2024-03-11 01:08 | Outpatient (CLI) | payer MEDICARE, SELFPAY ==
--- NOTE | 2024-03-11 11:20 | DI.US_ITS ---
Exam(s) US AAA SCREENING EXAM: US AAA SCREENING CLINICAL HISTORY: ABDOMINAL AORTIC ANEURYSM SCREENING, Z13.6 COMPARISON: CT CT ABDOMEN PELVIS W from 03/01/[address] CHEST PE CTA from 04/03/2020 FINDINGS: Abdominal Aorta: Proximal: 2.6 x 2.4 cm Mid: 2.4 x 2.5 cm Distal: 2.2 x 2.3 cm Iliac's: Right: 1.5 x 1.5 cm Left: 1.6 x 1.6 cm No significant atherosclerotic disease is seen. IMPRESSION: No evidence of abdominal aortic aneurysm. DATA REPOSITORY:
== END 2024-03-11 01:28 ==
LOC: DI 01:08
PROVIDERS: PCP Nurse Practitioner Family; Visit Provider Nurse Practitioner Family
DX: Z13.6 Encounter for screening for cardiovascular disorders (principal)
CPT/HCPCS: 76706